=== PATIENT | male | born 1995 | race Caucasian/White ===

== ENCOUNTER 2017-05-27 15:28 | Emergency (ER) | payer BC, OTHER ==
[2017-05-27 15:38] VITALS: BP 126/76; PULSE 74; RESP 16; TEMP 99.5
--- NOTE | 2017-05-27 15:44 | ED ---
Lower Extremity Injury HPI - General Chief Complaint: Extremity Injury, Lower Stated Complaint: knee injury Time Seen by Provider: 05/27/17 15:38 Source: patient, RN notes reviewed Mode of arrival: wheelchair Limitations: no limitations - History of Present Illness Initial Comments: This a 21-year-old male presents emergency department to complaint left knee pain. 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 Patient states he felt 2 pops in his knees. Patient states ever since that he was barely able weight-bear. Patient has increased pain with extension of his left leg. He's had some injuries in the past but has never seen an orthopedic doctor. Patient denies any paresthesias no head injury no other muscle skeletal injury. - Related Data Previous Rx's Medication Instructions Recorded Acetaminophen-Codeine 300-30mg 1 tab PO Q4H PRN #20 tablet 05/27/17 [Tylenol #3] Allergies Allergy/AdvReac Type Severity Reaction Status Date / Time No Known Allergies Allergy Verified 05/27/17 15:35 Review of Systems ROS Statement: Those systems with pertinent positive or pertinent negative responses have been documented in the HPI. ROS Other: All systems not noted in ROS Statement are negative. Past Medical History Past Medical History: No Reported History History of Any Multi-Drug Resistant Organisms: None Reported Past Surgical History: Orthopedic Surgery Past Psychological History: ADD/ADHD, Anxiety Smoking Status: Current every day smoker Past Alcohol Use History: Rare Past Drug Use History: Marijuana General Exam Limitations: no limitations General appearance: alert, in no apparent distress Neck exam: Present: normal inspection, full ROM. Absent: tenderness, meningismus, lymphadenopathy Respiratory exam: Present: normal lung sounds bilaterally. Absent: respiratory distress, wheezes, rales, rhonchi, stridor Cardiovascular Exam: Present: regular rate, normal rhythm, normal heart sounds. Absent: systolic murmur, diastolic murmur, rubs, gallop, clicks Extremities exam: Present: other (Left knee there is mild medial tenderness along the joint line there is no obvious deformity, ecchymosis or swelling patient has pain with knee extension and flexion there is no laxity with valgus or varus negative anterior posterior drawer test) Neurological exam: Present: alert, oriented X3, CN II-XII intact. Absent: motor sensory deficit Course Vital Signs 05/27/17 15:35 Temperature 99.5 F Pulse Rate 74 Respiratory 16 Rate Blood Pressure 126/76 O2 Sat by Pulse 99 Oximetry Medical Decision Making - Medical Decision Making 21-year-old male presented for left knee injury. Patient has a left knee sprain with possibility of ligamentous tear. Patient will follow-up with on- call orthopedics return parameters discussed. Patient was placed in knee immobilizer. Disposition Clinical Impression: Left knee sprain Disposition: HOME SELF-CARE Condition: Stable Instructions: Knee Sprain (ED) Additional Instructions: Please return to the Emergency Department if symptoms worsen or any other concerns. Prescriptions: Acetaminophen-Codeine 300-30mg [Tylenol #3] 1 tab PO Q4H PRN #20 tablet PRN Reason: pain Referrals: Darius Peña DO [Primary Care Provider] - 1-2 days Mingo Dc MD [STAFF PHYSICIAN] - 1-2 days Time of Disposition: 16:08
--- NOTE | 2017-05-27 16:04 | XR ---
Left knee HISTORY: Pain 3 views of the left knee correlated to prior left knee dated 08/08/2011 There is no interval change. Bone mineralization, joint spaces and alignment are stable. There is sof t tissue swelling present. There may be a small joint effusion. 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 Correlate for [place] Schlatter disease. IMPRESSION: No acute fracture or dislocation is evident. Consider knee MRI as indicated. Soft tissue swelling noted anteriorly.
== END 2017-05-27 16:20 | disposition home or self-care (01) ==
LOC: EC 15:28
DX: S83.92XA Sprain of unspecified site of left knee, initial encounter (principal); X58.XXXA Exposure to other specified factors, initial encounter; Y93.51 Activity, roller skating (inline) and skateboarding; F17.200 Nicotine dependence, unspecified, uncomplicated
CPT/HCPCS: 73562; 99283; L1830

== ENCOUNTER 2019-09-29 07:55 | Emergency (ER) | payer OTHER ==
[2019-09-29 08:06] VITALS: RESP 18; TEMP 98
[2019-09-29] MEDS ORDERED: LIDOCAINE 1% INJ 10MG/ML (20 ML MDV) SQ ONE (08:18)
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
[2019-09-29 09:11] VITALS: BP 141/82; PULSE 80
== END 2019-09-29 09:07 | disposition home or self-care (01) ==
LOC: EC 07:55
DX: S01.81XA Laceration without foreign body of other part of head, initial encounter (principal); F17.200 Nicotine dependence, unspecified, uncomplicated; W22.8XXA Striking against or struck by other objects, initial encounter
CPT/HCPCS: 99283; 12013; J2001

== ENCOUNTER 2020-06-18 09:13 | Emergency (ER) | payer OTHER ==
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
[2020-06-18 13:07] LABS: Cocaine Screen,Urine Not Detected (NotDetected); Phencyclidine Screen,Urine Not Detected (NotDetected); Urn Cannabinoid Scrn Not Detected (NotDetected)
[2020-06-18 13:08] LABS: Amphetamine Screen,Urine Detected (NotDetected); Barbiturate Screen,Urine Not Detected (NotDetected); Benzodiazepines Screen,Urine Not Detected (NotDetected); Methadone Screen, Urine Not Detected (NotDetected); Opiate Screen,Urine Not Detected (NotDetected); Oxycodone Screen, Urine Not Detected (NotDetected); Tricyclic Antidepressant,Urine Not Detected (NotDetected)
[2020-06-18 21:19] LABS: ALT 16 U/L (4-49); AST 21 U/L (17-59); African American GFR (CKD) >90 (>60 ml/min/1.73 sqM); Albumin 5.1 g/dL (3.5-5.0); Alkaline Phosphatase 49 U/L (38-126); Anion Gap 11 mmol/L; Blood Urea Nitrogen 16 mg/dL (9-20); Calcium 10.3 mg/dL (8.4-10.2); Carbon Dioxide 22 mmol/L (22-30); Chloride 104 mmol/L (98-107); Glucose 92 mg/dL (74-99); Non-African American GFR(CKD) >90 (>60 ml/min/1.73 sqM); Potassium 4.2 mmol/L (3.5-5.1); Sodium 137 mmol/L (137-145); Total Bilirubin 1.3 mg/dL (0.2-1.3)
[2020-06-18 21:22] LABS: HCT 47.4 % (39.0-53.0); HGB 16.2 gm/dL (13.0-17.5); MCH 27.6 pg (25.0-35.0); MCHC 34.1 g/dL (31.0-37.0); MCV 81.1 fL (80.0-100.0); Mean Platelet Volume 7.6; Platelet Count 242 k/uL (150-450); RBC 5.85 m/uL (4.30-5.90); RDW 13.3 % (11.5-15.5); WBC 9.2 k/uL (3.8-10.6)
[2020-06-18 22:44] LABS: Appearance,Urine Clear (Clear); Bilirubin,Urine Negative (Negative); Blood,Urine Negative (Negative); Color,Urine Yellow; Glucose,Urine (UA) Negative (Negative); Ketones,Urine 2+ (Negative); Leukocyte Esterase,Urine Negative (Negative); Nitrite,Urine Negative (Negative); PH, Urine 5.5 (5.0-8.0); Protein,Urine Negative (Negative); Specific Gravity,Urine 1.029 (1.001-1.035); Urobilinogen,Urine <2.0 mg/dL (<2.0)
[2020-06-18] MEDS ORDERED: LORazepam 1 MG TAB PO STA (23:30)
[2020-06-19 06:18] VITALS: TEMP 98.3
[2020-06-19 08:02] VITALS: RESP 18
[2020-06-19 10:53] VITALS: BP 119/75; PULSE 99
== END 2020-06-19 10:39 | disposition home or self-care (01) ==
LOC: EC 09:13
DX: F32.9 Major depressive disorder, single episode, unspecified (principal); R44.3 Hallucinations, unspecified; F17.200 Nicotine dependence, unspecified, uncomplicated
CPT/HCPCS: 36415; 80053; 80306; 81003; 82075; 85027; 99285

== ENCOUNTER 2020-07-04 00:41 | Emergency (ER) | payer OTHER ==
--- NOTE | 2020-07-04 00:55 | ED ---
General Adult HPI - General Stated complaint: tachycardia Time Seen by Provider: 07/04/20 00:43 Source: patient, EMS Mode of arrival: EMS Limitations: no limitations - History of Present Illness Initial comments: Patient is 25-year-old man with history of substance abuse who is brought to have evaluation for palpitations. The patient does admit that he had recently abused Adderall. He is denying other medical complaints. No chest pain, dyspnea, nausea or vomiting, diaphoresis or other complaints -: hour(s) Location: chest Severity scale (1-10): 0 Consistency: constant Improves with: none Worsens with: none Associated Symptoms: denies other symptoms Treatments Prior to Arrival: none - Related Data Home Medications Medication Instructions Recorded Confirmed No Known Home Medications 06/18/20 06/18/20 Allergies Allergy/AdvReac Type Severity Reaction Status Date / Time No Known Allergies Allergy Verified 07/04/20 00:54 Review of Systems ROS Statement: Those systems with pertinent positive or pertinent negative responses have been documented in the HPI. ROS Other: All systems not noted in ROS Statement are negative. Constitutional: Denies: fever, chills Respiratory: Denies: cough, dyspnea Cardiovascular: Reports: as per HPI, palpitations. Denies: chest pain, dyspnea on exertion, edema Gastrointestinal: Denies: abdominal pain, vomiting, diarrhea Musculoskeletal: Denies: back pain Skin: Denies: rash Neurological: Denies: headache, weakness Past Medical History Past Medical History: No Reported History History of Any Multi-Drug Resistant Organisms: None Reported Past Surgical History: Orthopedic Surgery Past Psychological History: ADD/ADHD, Anxiety Smoking Status: Current every day smoker Past Alcohol Use History: Occasional Past Drug Use History: Methamphetamine General Exam Limitations: no limitations General appearance: alert, in no apparent distress Head exam: Present: atraumatic, normocephalic Eye exam: Present: normal appearance, PERRL, EOMI. Absent: scleral icterus, conjunctival injection ENT exam: Present: normal oropharynx Respiratory exam: Present: normal lung sounds bilaterally. Absent: respiratory distress, wheezes, rales, rhonchi, stridor Cardiovascular Exam: Present: normal rhythm, tachycardia, normal heart sounds. Absent: systolic murmur, diastolic murmur, rubs, gallop GI/Abdominal exam: Present: soft. Absent: distended, tenderness, guarding, rebound, rigid, mass Extremities exam: Present: normal inspection, normal capillary refill. Absent: pedal edema, calf tenderness Back exam: Present: normal inspection. Absent: CVA tenderness (R), CVA tende rness (L) Neurological exam: Present: alert Psychiatric exam: Present: normal affect. Absent: homicidal ideation, suicidal ideation Skin exam: Present: warm, dry, intact, normal color, other (Needle tracks left forearm). Absent: rash Course Vital Signs 07/04/20 07/04/20 07/04/20 00:42 01:46 02:00 Temperature 99.2 F Pulse Rate 138 H 120 H Pulse Rate [ 140 H Bilateral] Respiratory 18 Rate Blood Pressure 126/89 O2 Sat by Pulse 97 Oximetry 07/04/20 07/04/20 07/04/20 02:43 02:53 03:36 Temperature 98.0 F Pulse Rate 106 H 95 88 Pulse Rate [ Bilateral] Respiratory 16 Rate Blood Pressure 136/73 O2 Sat by Pulse 99 Oximetry Medical Decision Making - Lab Data Result diagrams: 07/04/20 01:00 07/04/20 01:00 Lab Results 07/04/20 07/04/20 07/04/20 Range/Units 01:00 01:00 01:00 WBC 14.8 H (3.8-10.6) k/uL RBC 5.12 (4.30-5.90) m/uL Hgb 14.1 (13.0-17.5) gm/dL Hct 40.9 (39.0-53.0) % MCV 79.9 L (80.0-100.0) fL MCH 27.5 (25.0-35.0) pg MCHC 34.4 (31.0-37.0) g/dL RDW 13.0 (11.5-15.5) % Plt Count 256 (150-450) k/uL Neutrophils % 85 % Lymphocytes % 7 % Monocytes % 5 % Eosinophils % 2 % Basophils % 0 % Neutrophils # 12.5 H (1.3-7.7) k/uL Lymphocytes # 1.0 (1.0-4.8) k/uL Monocytes # 0.7 (0-1.0) k/uL Eosinophils # 0.3 (0-0.7) k/uL Basophils # 0.1 (0-0.2) k/uL Sodium 140 (137-145) mmol/L Potassium 3.9 (3.5-5.1) mmol/L Chloride 108 H (98-107) mmol/L Carbon Dioxide 21 L (22-30) mmol/L Anion Gap 11 mmol/L BUN 20 (9-20) mg/dL Creatinine 0.89 (0.66-1.25) mg/dL Est GFR (CKD-EPI)AfAm >90 (>60 ml/min/1.73 sqM) Est GFR (CKD-EPI)NonAf >90 (>60 ml/min/1.73 sqM) Glucose 97 (74-99) mg/dL Calcium 9.7 (8.4-10.2) mg/dL Urine Opiates Screen Not Detected (NotDetected) Ur Oxycodone Screen Not Detected (NotDetected) Urine Methadone Screen Not Detected (NotDetected) Ur Propoxyphene Screen Not Detected (NotDetected) Ur Barbiturates Screen Not Detected (NotDetected) U Tricyclic Antidepress Not Detected (NotDetected) Ur Phencyclidine Scrn Not Detected (NotDetected) Ur Amphetamines Screen Detected H (NotDetected) U Methamphetamines Scrn Detected H (NotDetected) U Benzodiazepines Scrn Not Detected (NotDetected) Urine Cocaine Screen Not Detected (NotDetected) U Marijuana (THC) Screen Not Detected (NotDetected) Disposition Clinical Impression: Sinus tachycardia, Substance abuse Disposition: HOME SELF-CARE Condition: Good Instructions (If sedation given, give patient instructions): Heart Palpitations (ED) Is patient prescribed a controlled substance at d/c from ED?: No Referrals: Darius Peña DO [Primary Care Provider] - 1-2 days
[2020-07-04] MEDS ORDERED: LORazepam 2 MG/ML INJ IV STA (01:01)
[2020-07-04 01:33] LABS: Basophils # (A) 0.1 k/uL (0-0.2); Basophils % (A) 0 %; Eosinophils # (A) 0.3 k/uL (0-0.7); Eosinophils % (A) 2 %; HCT 40.9 % (39.0-53.0); HGB 14.1 gm/dL (13.0-17.5); Lymphocytes % (A) 7 %; MCH 27.5 pg (25.0-35.0); MCHC 34.4 g/dL (31.0-37.0); MCV 79.9 fL (80.0-100.0); Mean Platelet Volume 7.9; Monocytes # (A) 0.7 k/uL (0-1.0); Monocytes % (A) 5 %; Neutrophils # (A) 12.5 k/uL (1.3-7.7); Neutrophils % (A) 85 %; Platelet Count 256 k/uL (150-450); RBC 5.12 m/uL (4.30-5.90); WBC 14.8 k/uL (3.8-10.6)
[2020-07-04 01:53] LABS: African American GFR (CKD) >90 (>60 ml/min/1.73 sqM); Anion Gap 11 mmol/L; Blood Urea Nitrogen 20 mg/dL (9-20); Calcium 9.7 mg/dL (8.4-10.2); Carbon Dioxide 21 mmol/L (22-30); Chloride 108 mmol/L (98-107); Cocaine Screen,Urine Not Detected (NotDetected); Glucose 97 mg/dL (74-99); Non-African American GFR(CKD) >90 (>60 ml/min/1.73 sqM); Opiate Screen,Urine Not Detected (NotDetected); Phencyclidine Screen,Urine Not Detected (NotDetected); Potassium 3.9 mmol/L (3.5-5.1); Sodium 140 mmol/L (137-145); Urn Cannabinoid Scrn Not Detected (NotDetected)
[2020-07-04 01:54] LABS: Amphetamine Screen,Urine Detected (NotDetected); Barbiturate Screen,Urine Not Detected (NotDetected); Benzodiazepines Screen,Urine Not Detected (NotDetected); Methadone Screen, Urine Not Detected (NotDetected); Oxycodone Screen, Urine Not Detected (NotDetected); Tricyclic Antidepressant,Urine Not Detected (NotDetected)
[2020-07-04 03:38] VITALS: BP 136/73; PULSE 88; RESP 16; TEMP 98
== END 2020-07-04 03:39 | disposition home or self-care (01) ==
LOC: EC 00:41
DX: F19.10 Other psychoactive substance abuse, uncomplicated (principal); F17.200 Nicotine dependence, unspecified, uncomplicated
CPT/HCPCS: 36415; 93005; 80048; 85025; 80306; 99285; 96374; J2060

== ENCOUNTER 2021-03-22 02:36 | Emergency (ER) | payer OTHER ==
[2021-03-22 02:45] VITALS: TEMP 100.7
[2021-03-22] MEDS ORDERED: ACETAMINOPHEN TAB 500 MG TAB PO STA (03:08)
[2021-03-22] MEDS ORDERED: IBUPROFEN 800 MG TAB PO STA (03:08)
[2021-03-22] MEDS ORDERED: SULFAMETH-TMP DS STARTER PACK 2 TAB BTL PO STA (03:08)
[2021-03-22] MEDS ORDERED: IBUPROFEN 600 MG STARTER PACK 4 TAB BTL PO STA (03:08)
[2021-03-22] MEDS ORDERED: CEPHALEXIN 500 MG CAP PO STA (03:08)
[2021-03-22] MEDS ORDERED: SULFAMETHOX-TMP 800-160MG 1 EACH TAB PO STA (03:08)
[2021-03-22] MEDS ORDERED: CEPHALEXIN 500MG STARTER PACK 4 CAP BTL PO STA (03:08)
--- NOTE | 2021-03-22 03:10 | ED ---
Lower Extremity Injury HPI - General Chief Complaint: Extremity Injury, Lower Stated Complaint: Right foot pain Time Seen by Provider: 03/22/21 02:54 Source: patient, EMS, RN notes reviewed, old records reviewed Mode of arrival: EMS Limitations: no limitations - History of Present Illness Initial Comments: This is a 25-year-old male who does have a history of IV drug abuse coming with right lower extremity right foot swelling leg swelling. Patient is recent IV drug abuse, just 6 days ago. Patient has no shortness of breath but states he may have had a fever but he states he does get a fever occasionally when he takes methamphetamines. Patient has otherwise no significant illness no sick contacts no travel history. MD Complaint: other (Right foot pain and swelling) -: hour(s) Injury: Leg: Right, Ankle: Right, Foot: Right Place: home Severity: mild Severity scale (1-10): 2 Worsens With: weight bearing Context: other (IV drug abuse) Other Symptoms: other ( fever) Associated Symptoms: swelling, numbness - Related Data Previous Rx's Medication Instructions Recorded Cephalexin [Keflex] 500 mg PO Q6HR #40 cap 03/22/21 Sulfamethox-Tmp 800-160Mg [Bactrim 2 tab PO BID #40 tab 03/22/21 DS 800-160 mg] Allergies Allergy/AdvReac Type Severity Reaction Status Date / Time No Known Allergies Allergy Verified 07/04/20 00:54 Review of Systems ROS Statement: Those systems with pertinent positive or pertinent negative responses have been documented in the HPI. ROS Other: All systems not noted in ROS Statement are negative. Past Medical History Past Medical History: No Reported History History of Any Multi-Drug Resistant Organisms: None Reported Past Surgical History: Orthopedic Surgery Past Psychological History: ADD/ADHD, Anxiety Smoking Status: Current every day smoker, Vaper Past Alcohol Use History: Occasional Past Drug Use History: Methamphetamine General Exam - General Exam Comments Initial Comments: Right lower extremity swelling, edema with some erythema in the toes and feet Limitations: no limitations General appearance: alert, in no apparent distress Head exam: Present: atraumatic, normocephalic, normal inspection Eye exam: Present: normal appearance, PERRL, EOMI. Absent: scleral icterus, conjunctival injection, periorbital swelling ENT exam: Present: normal exam, mucous membranes moist Neck exam: Present: normal inspection. Absent: tenderness, meningismus, lymphadenopathy Respiratory exam: Present: normal lung sounds bilaterally. Absent: respiratory distress, wheezes, rales, rhonchi, stridor Cardiovascular Exam: Present: regular rate, normal rhythm, normal heart sounds. Absent: systolic murmur, diastolic murmur, rubs, gallop, clicks GI/Abdominal exam: Present: soft, normal bowel sounds. Absent: distended, tenderness, guarding, rebound, rigid Extremities exam: Present: normal inspection, full ROM, normal capillary refill. Absent: tenderness, pedal edema, joint swelling, calf tenderness Back exam: Present: normal inspection Neurological exam: Present: alert, oriented X3, CN II-XII intact Psychiatric exam: Present: normal affect, normal mood Skin exam: Present: warm, dry, intact, normal color. Absent: rash Course Vital Signs 03/22/21 03/22/21 02:43 03:39 Temperature 100.7 F H Pulse Rate 122 H 110 H Respiratory 20 18 Rate Blood Pressure 149/83 145/88 O2 Sat by Pulse 97 98 Oximetry - Reevaluation(s) Reevaluation #1: Medical record is reviewed Patient symptoms are significantly improved here in the ER Patient informed of results and questions are answered Patient feels good for discharge home Medical Decision Making - Medical Decision Making 25 male DF for evaluation patient Dese for evaluation of leg pain and swelling. Patient does have cellulitis likely from IV drug abuse, no evidence of bacteremia or murmur on his heart at this time. Patient does IV drug abuse. We'll treat cellulitis, patient can be discharged home to return if symptoms worsen area patient states that he has heavy symptoms before - Radiology Data Radiology results: report reviewed (X-ray right ankle and foot are negative for air), image reviewed Disposition Clinical Impression: Cellulitis of right leg Disposition: HOME SELF-CARE Condition: Good Instructions (If sedation given, give patient instructions): Cellulitis (ED) Prescriptions: Sulfamethox-Tmp 800-160Mg [Bactrim DS 800-160 mg] 2 tab PO BID #40 tab Cephalexin [Keflex] 500 mg PO Q6HR #40 cap Is patient prescribed a controlled substance at d/c from ED?: No Referrals: Aixa Parker MD [Primary Care Provider] - 1-2 days
--- NOTE | 2021-03-22 03:12 | XR ---
EXAM: XR Right Foot Complete, 3 or More Views CLINICAL HISTORY: ITS.REASON XR Reason: pain/swelling TECHNIQUE: Frontal, lateral and oblique views of the right foot. COMPARISON: No relevant prior studies available. FINDINGS: Bones/joints: Unremarkable. No acute fracture. No dislocation. Soft tissues: Unremarkable. No radiopaque foreign body. IMPRESSION: Unremarkable right foot x-rays.
--- NOTE | 2021-03-22 03:12 | XR ---
EXAM: XR Right Ankle Complete, 3 or More Views CLINICAL HISTORY: ITS.REASON XR Reason: pain/swelling TECHNIQUE: Frontal, lateral and oblique views of the right ankle. COMPARISON: No relevant prior studies available. FINDINGS: Bones/joints: No acute fracture or dislocation is seen. Soft tissues: Mild soft tissue swelling surrounding the ankle. IMPRESSION: 1. Mild soft tissue swelling surrounding the ankle. 2. No acute fracture or dislocation is seen.
[2021-03-22 03:41] VITALS: BP 145/88; PULSE 110; RESP 18
== END 2021-03-22 03:41 | disposition home or self-care (01) ==
LOC: EC 02:36
DX: L03.115 Cellulitis of right lower limb (principal); F17.200 Nicotine dependence, unspecified, uncomplicated
CPT/HCPCS: 99284

== ENCOUNTER 2021-03-23 05:21 | Observation (INO) | payer OTHER ==
--- NOTE | 2021-03-23 05:41 | ED ---
Recheck HPI - General Chief Complaint: Skin/Abscess/Foreign Body Stated Complaint: Leg pain - revisit Time Seen by Provider: 03/23/21 05:35 Source: patient, RN notes reviewed, old records reviewed Mode of arrival: wheelchair Limitations: no limitations - History of Present Illness Initial Comments: This is a 25-year-old male DF for evaluation patient Dese for evaluation of leg pain, patient was unable to prescribe her get prescribed antibiotics and states his pain is worsened swelling is worsened. Patient denying fevers. Denies active drug use. No significant medical history, patient is released from intermediate Complaint: wound re-check, medication refill request -: days(s) Returns Today for: needs IV antibiotics, persistent/worsening pain related to initial visit Symptoms Since Prior Visit: worsening pain, worsening swelling, worsening rednes s Context: planned re-check Associated Symptoms: none Treatments Prior to Arrival: Given Antibiotics on - Related Data Previous Rx's Medication Instructions Recorded Cephalexin [Keflex] 500 mg PO Q6HR #40 cap 03/22/21 Sulfamethox-Tmp 800-160Mg [Bactrim 2 tab PO BID #40 tab 03/22/21 DS 800-160 mg] Allergies Allergy/AdvReac Type Severity Reaction Status Date / Time latex AdvReac Unknown Verified 03/24/21 07:16 sulfamethoxazole AdvReac Nausea & Verified 03/24/21 07:16 [From Bactrim] Vomiting trimethoprim [From Bactrim] AdvReac Nausea & Verified 03/24/21 07:16 Vomiting Review of Systems ROS Statement: Those systems with pertinent positive or pertinent negative responses have been documented in the HPI. ROS Other: All systems not noted in ROS Statement are negative. Past Medical History Past Medical History: No Reported History Additional Past Medical History / Comment(s): drug abuse History of Any Multi-Drug Resistant Organisms: None Reported Past Surgical History: Orthopedic Surgery Past Psychological History: ADD/ADHD, Anxiety Smoking Status: Current every day smoker, Vaper Past Alcohol Use History: Occasional Past Drug Use History: Methamphetamine - Past Family History Father Family Medical History: No Reported History Mother Family Medical History: Unable to Obtain General Exam - General Exam Comments Initial Comments: Bilateral lower extremity edema and cellulitis Limitations: no limitations General appearance: alert, in no apparent distress Head exam: Present: atraumatic, normocephalic, normal inspection Eye exam: Present: normal appearance, PERRL, EOMI. Absent: scleral icterus, conjunctival injection, periorbital swelling ENT exam: Present: normal exam, mucous membranes moist Neck exam: Present: normal inspection. Absent: tenderness, meningismus, lymphadenopathy Respiratory exam: Present: normal lung sounds bilaterally. Absent: respiratory distress, wheezes, rales, rhonchi, stridor Cardiovascular Exam: Present: regular rate, normal rhythm, normal heart sounds. Absent: systolic murmur, diastolic murmur, rubs, gallop, clicks GI/Abdominal exam: Present: soft, normal bowel sounds. Absent: distended, tenderness, guarding, rebound, rigid Extremities exam: Present: normal inspection, full ROM, normal capillary refill. Absent: tenderness, pedal edema, joint swelling, calf tenderness Back exam: Present: normal inspection Neurological exam: Present: alert, oriented X3, CN II-XII intact Psychiatric exam: Present: normal affect, normal mood Skin exam: Present: warm, dry, intact, normal color. Absent: rash Course Vital Signs 03/23/21 03/23/21 05:28 07:00 Temperature 98.8 F 97.8 F Pulse Rate 116 H Pulse Rate [ 104 H Pulse Oximetery ] Respiratory 20 16 Rate Blood Pressure 143/80 Blood Pressure 147/89 [Left Arm] O2 Sat by Pulse 98 98 Oximetry - Reevaluation(s) Reevaluation #1: Medical record is reviewed Patient reevaluated in the emergency department, symptoms resolved Patient informed results questions answered Medical Decision Making - Medical Decision Making 25 male to be admitted for IV antibiotics secondary persistent lower extremity cellulitis and infection secondary to IV drug abuse - Lab Data Result diagrams: 03/23/21 06:11 03/23/21 06:11 - EKG Data -: EKG Interpreted by Me (EKG shows sinus rhythm of 97, ME 166 QRS 90 QTC 449) Disposition Clinical Impression: Cellulitis of right leg, Failure of outpatient treatment, Drug abuse Disposition: ADMITTED IP TO THIS HOSP Condition: Fair Is patient prescribed a controlled substance at d/c from ED?: No
[2021-03-23] MEDS ORDERED: MORPHINE SULFATE 4 MG/ML SYRINGE IV STA (05:53)
[2021-03-23] MEDS ORDERED: SODIUM CHLORIDE 0.9% 1,000 ML IV STA ×2 (05:53)
[2021-03-23] MEDS ORDERED: ONDANSETRON 4 MG/2 ML VIAL IVP STA (05:53)
[2021-03-23] MEDS ORDERED: NALOXONE 0.4 MG/ML 1 ML VIAL IV PRN (05:53)
[2021-03-23] MEDS ORDERED: MORPHINE SULFATE 4 MG/ML SYRINGE IV PRN (05:53)
[2021-03-23] MEDS ORDERED: SODIUM CHLORIDE 0.9% 1,000 ML IV SCH (06:00)
[2021-03-23] MEDS ORDERED: VANCOMYCIN IV PER PHARMACY 1 EACH MISC MISCELLANE PRN (06:23)
[2021-03-23 06:26] LABS: Basophils # (A) 0.1 k/uL (0-0.2); Basophils % (A) 1 %; Eosinophils # (A) 0.4 k/uL (0-0.7); Eosinophils % (A) 5 %; HCT 39.9 % (39.0-53.0); HGB 13.6 gm/dL (13.0-17.5); Lymphocytes # (A) 2.1 k/uL (1.0-4.8); Lymphocytes % (A) 29 %; MCHC 34.1 g/dL (31.0-37.0); MCV 79.3 fL (80.0-100.0); Mean Platelet Volume 8.2; Monocytes # (A) 0.6 k/uL (0-1.0); Monocytes % (A) 8 %; Neutrophils % (A) 55 %; Platelet Count 176 k/uL (150-450); RBC 5.03 m/uL (4.30-5.90); RDW 13.8 % (11.5-15.5); WBC 7.2 k/uL (3.8-10.6)
[2021-03-23 06:42] LABS: ALT 28 U/L (4-49); African American GFR (CKD) >90 (>60 ml/min/1.73 sqM); Albumin 4.5 g/dL (3.5-5.0); Anion Gap 15 mmol/L; Blood Urea Nitrogen 13 mg/dL (9-20); Calcium 9.4 mg/dL (8.4-10.2); Carbon Dioxide 17 mmol/L (22-30); Chloride 106 mmol/L (98-107); Creatine Kinase 703 U/L (55-170); Glucose 75 mg/dL (74-99); Non-African American GFR(CKD) >90 (>60 ml/min/1.73 sqM); Phosphorus 3.7 mg/dL (2.5-4.5); Sodium 138 mmol/L (137-145); Total Protein 7.6 g/dL (6.3-8.2)
[2021-03-23 06:54] LABS: AST 54 U/L (17-59); Alkaline Phosphatase 63 U/L (38-126); Magnesium 2.2 mg/dL (1.6-2.3)
[2021-03-23] MEDS ORDERED: VANCOMYCIN 1,750 MG in SODIUM CHLORIDE 0.9% 500 ML 500 ML IVPB ONE (07:00)
[2021-03-23 07:43] VITALS: BP 147/89; PULSE 104; RESP 16; TEMP 97.8
[2021-03-23 09:31] LABS: Appearance,Urine Clear (Clear); Bilirubin,Urine Negative (Negative); Blood,Urine Negative (Negative); Color,Urine Yellow; Glucose,Urine (UA) Negative (Negative); Ketones,Urine 3+ (Negative); Leukocyte Esterase,Urine Negative (Negative); Nitrite,Urine Negative (Negative); PH, Urine 6.5 (5.0-8.0); Protein,Urine Negative (Negative); Specific Gravity,Urine 1.016 (1.001-1.035); Urobilinogen,Urine <2.0 mg/dL (<2.0)
--- NOTE | 2021-03-23 12:53 | HP ---
HISTORY AND PHYSICAL DATE OF SERVICE: 03/23/2021. CHIEF COMPLAINT: Right leg pain and rash. HISTORY OF PRESENT ILLNESS: This 25-year-old gentleman with a past medical history of multiple medical problems including ADD, ADHD, anxiety, history of IV drug abuse with methamphetamine, presented with right leg pain as well as bilateral leg rash also. There is no history of fever, rigors. No history of headache, loss of consciousness, or seizures. On admission, the white count was found to be normal. PAST MEDICAL HISTORY: History of ADD ADHD, anxiety, history nicotine dependence, history of IV drug abuse, methamphetamine. MEDICATIONS: Medications are: 1. Bactrim DS 2 b.i.d. 2. Keflex 500 mg q.6 p.r.n. ALLERGIES: LATEX and BACTRIM. FAMILY HISTORY: No history of heart disease or strokes in the family. SOCIAL HISTORY: History of smoking. History of IV drug abuse as mentioned earlier. REVIEW OF SYSTEMS: ENT: No diminished hearing or diminished vision. CARDIOVASCULAR SYSTEM: No angina. RESPIRATORY SYSTEM: No cough. GI: No nausea. : No dysuria. NERVOUS SYSTEM: No numbness or weakness. ALLERGY/IMMUNOLOGY: No asthma or hayfever. MUSCULOSKELETAL: As mentioned earlier. HEMATOLOGY: No history of anemia. ENDOCRINE: No history of diabetes. CONSTITUTIONAL: As mentioned earlier. DERMATOLOGY: As mentioned earlier. RHEUMATOLOGY: Negative. PSYCHIATRY: As mentioned earlier. PHYSICAL EXAMINATION: The patient is alert and oriented x4. Pulse is 116, blood pressure 143/80, respirations 20, temperature 98.8, pulse ox 98% on room air. HEENT: Conjunctivae normal. NECK: No jugular venous distention. CARDIOVASCULAR: S1, S2 muffled. RESPIRATORY: Breath sounds diminished at the bases. Scattered rhonchi. ABDOMEN: Soft, nontender. No mass palpable. LEGS: Significant rash on bilateral legs and some pain also present. Pulses felt normally. NERVOUS SYSTEM: Higher function as mentioned earlier. Moves all 4 limbs. No focal motor or sensory deficits. LYMPHATICS: No lymphadenopathy of the neck, axillae or groin. SKIN: As mentioned earlier. JOINTS: No active deforming arthropathy. LABS: WBC 7.2, hemoglobin 13.6, creatine kinase 703. ASSESSMENT: 1. Bilateral leg lesions, rule out cellulitis. 2. Rule out infective endocarditis. 3. History of IV drug abuse. 4. Decreased CO2. 5. History of attention deficit disorder, attention deficit hyperactivity disorder. 6. History of anxiety. 7. History of nicotine dependence. 8. History of methamphetamine usage. RECOMMENDATIONS AND DISCUSSION: Recommend to continue current medication, continue symptomatic treatment. Otherwise, cultures, infectious disease evaluation, symptomatic treatment. Empiric antibiotics have been initiated. Prognosis guarded because of multiple complex medical issues. Cultures will be obtained. The patient will be also recommended to follow up with primary physician in the outpatient setting and also recommended outpatient substance abuse dependence and counseling also. Prognosis guarded. Further recommendations to follow. Discussed with patient and staff. MMODL / IJN: [id number] /
[2021-03-23] MEDS ORDERED: VANCOMYCIN 1,500 MG in SODIUM CHLORIDE 0.9% 250 ML IVPB SCH (15:00)
--- NOTE | 2021-03-23 15:21 | DS ---
DISCHARGE SUMMARY DATE OF SERVICE: 03/23/2021 FINAL DIAGNOSES: 1. Possible acute bilateral cellulitis. Rule out suspected infective endocarditis. 2. History of IV drug abuse. 3. Attention deficit disorder, attention deficit hyperactivity disorder. 4. Patient left the hospital AGAINST MEDICAL ADVICE. HISTORY OF PRESENT ILLNESS: This 25-year-old gentleman was admitted with multiple medical issues, as mentioned earlier. The patient was seen by Dr. Lara. The patient's general condition was guarded because of the above-mentioned complicated medical issues; however, the patient was not willing to stay and left the hospital AGAINST MEDICAL ADVICE after repeated explanation of the graveness of the patient's condition. Please refer to staff notes and consultations as well as History and Physical for further information. MMODL / IJN: [id number] /
[2021-03-23 16:33] LABS: Urine Alcohol Negative (Negative); Urine Barbiturate Negative (Negative); Urine Cocaine Negative (Negative); Urine Methadone Negative (Negative); Urine Opiates Positive (Negative); Urine Phencyclidine Negative (Negative)
== END 2021-03-23 10:56 | disposition left against medical advice (07) ==
LOC: EC 05:21 → 6NMEDSUR 05:53
PROVIDERS: ADMIT Hospitalist; ATTEND Hospitalist
DX: L03.115 Cellulitis of right lower limb (principal); F19.10 Other psychoactive substance abuse, uncomplicated; T80.29XA Infection following other infusion, transfusion and therapeutic injection, initial encounter; F98.8 Other specified behavioral and emotional disorders with onset usually occurring in childhood and adolescence; Z53.29 Procedure and treatment not carried out because of patient's decision for other reasons; F90.9 Attention-deficit hyperactivity disorder, unspecified type; F41.9 Anxiety disorder, unspecified; F17.200 Nicotine dependence, unspecified, uncomplicated; F17.290 Nicotine dependence, other tobacco product, uncomplicated; Z91.040 Latex allergy status; Z88.1 Allergy status to other antibiotic agents
CPT/HCPCS: 96376; 96368; 96365; 96366; 96375; 99285; 93005; 80053; 82550; 83605; 83735; 84100; 85025; 81003; 80306; 87070; 87205; 87075; G0378; J3370; J2270; J2405; J0696

== ENCOUNTER 2021-03-23 11:02 | Emergency (ER) | payer OTHER ==
[2021-03-23 11:10] VITALS: BP 149/91; PULSE 119; RESP 18; TEMP 98.2
[2021-03-23] MEDS ORDERED: BACITRACIN OINT 1 EACH PACKET TOPICAL ONE (11:43)
--- NOTE | 2021-03-23 11:49 | ED ---
General Adult HPI - General Chief complaint: Extremity Injury, Upper Stated complaint: revisit - finger lac Time Seen by Provider: 03/23/21 11:16 Source: patient Mode of arrival: ambulatory Limitations: no limitations - History of Present Illness Initial comments: 5-year-old male presents to emergency Department with a chief complaint of a laceration. Patient reports he lacerated his right fifth digit over 24 hours ago and went to another emergency department where he was discharged with Bactrim and Keflex. Patient reports he is yet to begin the Medication. Patient States before He Begins Taking the Medication, He Wants to Have the Laceration "looked at". Patient denies any discharge from the finger or surrounding erythema. Patient states he was admitted to the hospital but signed out AMA. Patient states he wants a "bandage" on his finger before he can black pickler his antibiotic. - Related Data Previous Rx's Medication Instructions Recorded Cephalexin [Keflex] 500 mg PO Q6HR #40 cap 03/22/21 Sulfamethox-Tmp 800-160Mg [Bactrim 2 tab PO BID #40 tab 03/22/21 DS 800-160 mg] Allergies Allergy/AdvReac Type Severity Reaction Status Date / Time latex AdvReac Unknown Verified 03/23/21 09:31 sulfamethoxazole AdvReac Nausea & Verified 03/23/21 06:52 [From Bactrim] Vomiting trimethoprim [From Bactrim] AdvReac Nausea & Verified 03/23/21 06:52 Vomiting Review of Systems ROS Statement: Those systems with pertinent positive or pertinent negative responses have been documented in the HPI. ROS Other: All systems not noted in ROS Statement are negative. Past Medical History Past Medical History: No Reported History Additional Past Medical History / Comment(s): IV drug abuse - Methamphetamine History of Any Multi-Drug Resistant Organisms: None Reported Past Surgical History: Orthopedic Surgery Additional Past Surgical History / Comment(s): Collar bone surgery, knee surgery Past Anesthesia/Blood Transfusion Reactions: No Reported Reaction Past Psychological History: ADD/ADHD, Anxiety Smoking Status: Current some day smoker, Light tobacco smoker Past Alcohol Use History: None Reported Past Drug Use History: None Reported, Methamphetamine - Past Family History Father Family Medical History: No Reported History Mother Family Medical History: Unable to Obtain General Exam Limitations: no limitations General appearance: alert, in no apparent distress Head exam: Present: atraumatic, normocephalic, normal inspection Eye exam: Present: normal appearance, PERRL, EOMI Pupils: Present: normal accommodation ENT exam: Present: normal exam, normal oropharynx, mucous membranes moist Neck exam: Present: normal inspection, full ROM. Absent: tenderness, lymphadenopathy Respiratory exam: Present: normal lung sounds bilaterally. Absent: respiratory distress Cardiovascular Exam: Present: regular rate, normal rhythm, normal heart sounds Extremities exam: Present: full ROM, tenderness (Minimal tenderness to touch), normal capillary refill, other (Palpable ulnar and radial pulses laterally.). Absent: normal inspection (healing laceration noted on the right fifth digit. No signs of surrounding erythema or discharge. Slight swelling in the region. He has full range of motion of finger), pedal edema, joint swelling, calf tenderness Back exam: Present: normal inspection, full ROM. Absent: tenderness Neurological exam: Present: alert, oriented X3 Psychiatric exam: Present: normal affect, normal mood Skin exam: Present: warm, dry, intact, normal color Course Vital Signs 03/23/21 11:07 Temperature 98.2 F Pulse Rate 119 H Respiratory 18 Rate Blood Pressure 149/91 O2 Sat by Pulse 95 Oximetry Medical Decision Making - Medical Decision Making 25-year-old male presents to emergency department with a chief complaint of a la ceration. Physical examination, no signs of an acute infection at this time. Bacitracin and dressing applied. Advised him to take his rectum and Keflex. Return parameters discussed the patient was upsetting agreeable. Case discussed with Dr. Scruggs. Disposition Clinical Impression: Laceration re-check Disposition: HOME SELF-CARE Condition: Stable Instructions (If sedation given, give patient instructions): Laceration (DC) Additional Instructions: Starts Taking your antibiotics. Return to emergency department if symptoms worsen. Is patient prescribed a controlled substance at d/c from ED?: No Referrals: Aixa Parker MD [Primary Care Provider] - 1-2 days Time of Disposition: 11:49
== END 2021-03-23 11:57 | disposition home or self-care (01) ==
LOC: EC 11:02
DX: S61.216A Laceration without foreign body of right little finger without damage to nail, initial encounter (principal); F17.200 Nicotine dependence, unspecified, uncomplicated; X58.XXXA Exposure to other specified factors, initial encounter
CPT/HCPCS: 99282

== ENCOUNTER 2021-03-23 23:44 | Observation (INO) | payer OTHER ==
--- NOTE | 2021-03-23 23:58 | ED ---
Psych HPI - General Chief Complaint: Psychiatric Symptoms Stated Complaint: Mental Health Time Seen by Provider: 03/23/21 23:55 Source: patient, RN notes reviewed, old records reviewed Mode of arrival: ambulatory - History of Present Illness Initial Comments: This is a 25-year-old male DF for evaluation patient is well-known to our emergency department the last few days. [facility] was [facility] may have done recurrent drugs, has been diagnosed with cellulitis on antibiotics. Patient is having acute psychotic episodes patient feels persecuted pressure feels like everyone is out to get him. Patient presents DF for evaluation of acute psychosis, severe history of meth abuse MD Complaint: altered mental status, other (Psychosis) -: days(s) Associated Psychiatric Symptoms: racing thoughts, delusions Quality: constant Improves With: none Worsens With: drug use Context: recent drug abuse, significant life stressor Associated Symptoms: denies other symptoms Treatments Prior to Arrival: placed on mental health hold - Related Data Previous Rx's Medication Instructions Recorded Cephalexin [Keflex] 500 mg PO Q6HR #40 cap 03/22/21 Sulfamethox-Tmp 800-160Mg [Bactrim 2 tab PO BID #40 tab 03/22/21 DS 800-160 mg] Allergies Allergy/AdvReac Type Severity Reaction Status Date / Time latex AdvReac Unknown Verified 03/24/21 07:16 sulfamethoxazole AdvReac Nausea & Verified 03/24/21 07:16 [From Bactrim] Vomiting trimethoprim [From Bactrim] AdvReac Nausea & Verified 03/24/21 07:16 Vomiting Review of Systems ROS Statement: Those systems with pertinent positive or pertinent negative responses have been documented in the HPI. ROS Other: All systems not noted in ROS Statement are negative. Past Medical History Past Medical History: No Reported History Additional Past Medical History / Comment(s): IV drug abuse - Methamphetamine History of Any Multi-Drug Resistant Organisms: None Reported Past Surgical History: Orthopedic Surgery Additional Past Surgical History / Comment(s): Collar bone surgery, knee surgery Past Anesthesia/Blood Transfusion Reactions: No Reported Reaction Past Psychological History: ADD/ADHD, Anxiety Smoking Status: Current some day smoker, Light tobacco smoker Past Alcohol Use History: None Reported Past Drug Use History: Methamphetamine - Past Family History Father Family Medical History: No Reported History Mother Family Medical History: Unable to Obtain General Exam Limitations: no limitations General appearance: alert, in no apparent distress, anxious Head exam: Present: atraumatic, normocephalic, normal inspection Eye exam: Present: normal appearance, PERRL, EOMI. Absent: scleral icterus, conjunctival injection, periorbital swelling ENT exam: Present: normal exam, mucous membranes moist Neck exam: Present: normal inspection. Absent: tenderness, meningismus, lymphadenopathy Respiratory exam: Present: normal lung sounds bilaterally. Absent: respiratory distress, wheezes, rales, rhonchi, stridor Cardiovascular Exam: Present: regular rate, normal rhythm, normal heart sounds. Absent: systolic murmur, diastolic murmur, rubs, gallop, clicks GI/Abdominal exam: Present: soft, normal bowel sounds. Absent: distended, tende rness, guarding, rebound, rigid Extremities exam: Present: normal inspection, full ROM, normal capillary refill. Absent: tenderness, pedal edema, joint swelling, calf tenderness Back exam: Present: normal inspection Neurological exam: Present: alert, oriented X3, CN II-XII intact Psychiatric exam: Present: normal affect, normal mood Skin exam: Present: warm, dry, intact, normal color. Absent: rash Course Vital Signs 03/23/21 03/24/21 03/24/21 23:47 04:00 07:27 Temperature 97.8 F 98.2 F Pulse Rate 101 H 87 94 Respiratory 18 22 18 Rate Blood Pressure 130/81 139/84 135/77 O2 Sat by Pulse 97 98 97 Oximetry 03/24/21 03/24/21 11:00 14:56 Temperature 97.7 F 98.0 F Pulse Rate 101 H 94 Respiratory 18 18 Rate Blood Pressure 119/79 126/68 O2 Sat by Pulse 98 99 Oximetry - Reevaluation(s) Reevaluation #1: 03/24/21 02:21 Medical record is reviewed Medical Decision Making - Medical Decision Making 25 male will be admitted for psychiatric evaluation and concurrently treatment of medical cellulitis secondary to IV drug abuse - Lab Data Result diagrams: 03/25/21 06:18 03/25/21 06:18 Lab Results 03/24/21 03/24/21 Range/Units 03:07 03:12 Urine Color Yellow Urine Appearance Clear (Clear) Urine pH 6.5 (5.0-8.0) Ur Specific [place] 1.024 (1.001-1.035) Urine Protein Negative (Negative) Urine Glucose (UA) Negative (Negative) Urine Ketones 1+ H (Negative) Urine Blood Negative (Negative) Urine Nitrite Negative (Negative) Urine Bilirubin Negative (Negative) Urine Urobilinogen <2.0 (<2.0) mg/dL Ur Leukocyte Esterase Negative (Negative) Urine Opiates Screen Detected H (NotDetected) Ur Oxycodone Screen Not Detected (NotDetected) Urine Methadone Screen Not Detected (NotDetected) Ur Propoxyphene Screen Not Detected (NotDetected) Ur Barbiturates Screen Not Detected (NotDetected) U Tricyclic Antidepress Not Detected (NotDetected) Ur Phencyclidine Scrn Not Detected (NotDetected) Ur Amphetamines Screen Detected H (NotDetected) U Methamphetamines Scrn Detected H (NotDetected) U Benzodiazepines Scrn Not Detected (NotDetected) Urine Cocaine Screen Not Detected (NotDetected) U Marijuana (THC) Screen Not Detected (NotDetected) Disposition Clinical Impression: Cellulitis of right leg, Psychosis Disposition: ADMITTED IP TO THIS HOSP Condition: Fair Is patient prescribed a controlled substance at d/c from ED?: No
[2021-03-24] MEDS ORDERED: ONDANSETRON 4 MG/2 ML VIAL IVP PRN (03:35)
[2021-03-24] MEDS ORDERED: SODIUM CHLORIDE 0.9% 1,000 ML IV STA (03:35)
[2021-03-24] MEDS ORDERED: NALOXONE 0.4 MG/ML 1 ML VIAL IV PRN (03:35)
[2021-03-24] MEDS ORDERED: LORazepam 2 MG/ML INJ IV STA (03:37)
[2021-03-24 04:10] LABS: Appearance,Urine Clear (Clear); Bilirubin,Urine Negative (Negative); Blood,Urine Negative (Negative); Color,Urine Yellow; Glucose,Urine (UA) Negative (Negative); Ketones,Urine 1+ (Negative); Leukocyte Esterase,Urine Negative (Negative); Nitrite,Urine Negative (Negative); PH, Urine 6.5 (5.0-8.0); Protein,Urine Negative (Negative); Specific Gravity,Urine 1.024 (1.001-1.035); Urobilinogen,Urine <2.0 mg/dL (<2.0)
[2021-03-24 04:29] LABS: ALT 25 U/L (4-49); AST 37 U/L (17-59); African American GFR (CKD) >90 (>60 ml/min/1.73 sqM); Albumin 3.8 g/dL (3.5-5.0); Alkaline Phosphatase 60 U/L (38-126); Anion Gap 10 mmol/L; Blood Urea Nitrogen 12 mg/dL (9-20); Calcium 9.1 mg/dL (8.4-10.2); Carbon Dioxide 21 mmol/L (22-30); Chloride 107 mmol/L (98-107); Glucose 93 mg/dL (74-99); Magnesium 2.2 mg/dL (1.6-2.3); Non-African American GFR(CKD) >90 (>60 ml/min/1.73 sqM); Phosphorus 3.7 mg/dL (2.5-4.5); Potassium 3.7 mmol/L (3.5-5.1); Sodium 138 mmol/L (137-145); Total Bilirubin 0.3 mg/dL (0.2-1.3); Total Protein 6.5 g/dL (6.3-8.2)
[2021-03-24 04:39] LABS: Basophils % (A) 1 %; Eosinophils # (A) 0.4 k/uL (0-0.7); Eosinophils % (A) 7 %; HCT 37.5 % (39.0-53.0); HGB 13.4 gm/dL (13.0-17.5); Lymphocytes # (A) 2.2 k/uL (1.0-4.8); Lymphocytes % (A) 37 %; MCH 28.4 pg (25.0-35.0); MCHC 35.7 g/dL (31.0-37.0); MCV 79.4 fL (80.0-100.0); Mean Platelet Volume 7.8; Monocytes # (A) 0.4 k/uL (0-1.0); Monocytes % (A) 7 %; Neutrophils # (A) 2.9 k/uL (1.3-7.7); Neutrophils % (A) 47 %; Platelet Count 235 k/uL (150-450); RBC 4.72 m/uL (4.30-5.90); RDW 13.3 % (11.5-15.5)
[2021-03-24 05:06] LABS: Amphetamine Screen,Urine Detected (NotDetected); Barbiturate Screen,Urine Not Detected (NotDetected); Benzodiazepines Screen,Urine Not Detected (NotDetected); Cocaine Screen,Urine Not Detected (NotDetected); Methadone Screen, Urine Not Detected (NotDetected); Opiate Screen,Urine Detected (NotDetected); Oxycodone Screen, Urine Not Detected (NotDetected); Phencyclidine Screen,Urine Not Detected (NotDetected); Tricyclic Antidepressant,Urine Not Detected (NotDetected); Urn Cannabinoid Scrn Not Detected (NotDetected)
[2021-03-24] MEDS: HYDROcodone/APAP 5-325MG 1 EACH TAB PO PRN ×2 (12:31→23:43)
[2021-03-24] MEDS: LORazepam 2 MG/ML INJ IV PRN ×2 (12:33→23:14)
--- NOTE | 2021-03-24 14:14 | P.CN ---
Psychiatric Consult - . Consult date: 03/24/21 Consult:: IDENTIFYING DATA: This patient is a single, unemployed, 25-year-old male with a significant history of methamphetamine abuse who presented to the hospital with a chief complaint of altered mental status. HISTORY OF PRESENT ILLNESS: The patient presented to the hospital on 03/22/2021 and has been frequently in and out of the hospital and returning to the emergency department for treatment of cellulitis, finger laceration, and other various reasons. Psychiatry has been consulted for evaluation of altered mental status. At this time, the patient is not reporting any significant symptoms of psychiatric pathology. He is not reporting any suicidal or homicidal ideation, intention, and/or plan. He is denying any significant symptoms of depression or bipolar disorder. He reports no increased goal-directed activity, excessive energy, grandiosity, or impulsivity. The patient is not reporting any psychotic symptoms. He reports no auditory or visualizations. He is denying any paranoia or other delusions at this time. Patient states that he was likely under the influence of drugs prior to this admission causing him to feel like he was paranoid. He is vehemently denying any sort of symptoms at this time aside from fatigue. The patient states that he last used IV methamphetamines 3 days prior to this admission. The patient is not reporting any other illicit drug use and denies any tobacco or alcohol use. PAST PSYCHIATRIC HISTORY: Patient has reported history of anxiety and ADHD. He denies any previous inpatient psychiatric admissions. He reports no outpatient services. He reports no prior trials of psychiatric medications. He denies any history of suicide attempts. PAST MEDICAL HISTORY: Past Medical History: No Reported History History of Any Multi-Drug Resistant Organisms: None Reported Past Surgical History: Orthopedic Surgery Past Psychological History: ADD/ADHD, Anxiety Smoking Status: Current every day smoker, Vaper Past Alcohol Use History: Occasional Past Drug Use History: Methamphetamine ALLERGIES: Latex, trimethoprim, sulfamethoxazole CHEMICAL DEPENDENCY HISTORY: Patient was his drug of choice is IV meth amphetamines. He states that he uses this daily with his last use 3 days prior to this admission. The patient visits daily. He denies any alcohol, marijuana, or other drug use. Despite this, the patient has tested positive for opiates on his urinary drug screen on 03/23/2021. FAMILY PSYCHIATRIC/SUBSTANCE USE HISTORY: Patient denies SOCIAL HISTORY: Patient was born in [place], and raised in [place], [place]. He is single, unemployed, and has no children. MENTAL STATUS EXAM: General Appearance: Patient appears to be stated age is alert, pleasant, and cooperative. Patient appears to have fair hygiene and grooming wearing hospital gown with poor eye contact. Behavior: Patient is calmly lying in bed without any agitated behavior. Patient appears somewhat somnolent during the interview but is cooperative and polite. Speech: Patient's speech is fluent and nonpressured. Mood/Affect: Patient reports their mood is "just tired", affect is congruent and somnolent. Suicidality/Homicidality: Patient vehemently denies any suicidal or homicidal ideation, intention, and/or plan. Perceptions: Patient denies any visual hallucinations and denies any auditory hallucinations Though content/process: There is no evidence of any delusional thought content and thought process is linear and goal-directed. Memory and concentration: AOX3, grossly intact for the purposes of this session. Can spell "WORLD" backwards Judgment and insight: poor Vital Signs Temp 97.7 F 03/24/21 11:00 Pulse 101 H 03/24/21 11:00 Resp 18 03/24/21 11:00 BP 119/79 03/24/21 11:00 Pulse Ox 98 03/24/21 11:00 Intake & Output 03/23/21 03/24/21 03/24/21 18:59 06:59 18:59 Weight 95.254 kg IMPRESSIONS: Methamphetamine-induced psychosis, resolving Methamphetamine abuse Nicotine dependence Cellulitis PLAN: -At this time patient DOES NOT meet criteria for inpatient psychiatric admission. The patient is currently not reporting any significant psychiatric pathology. Patient is not actively psychotic and has no criteria for an inpatient psychiatric admission. He is likely that his psychosis was secondary to his methamphetamine abuse. -Patient was counseled at length on abstaining from all substances including methamphetamines. The patient states that he is contemplative at this time. -Would recommend the following medication changes/additions: No medication recommendations at this time. -Recommend referral for inpatient or outpatient substance abuse rehabilitation. -Psychiatry will sign off at this point, please contact with any questions. 03/24/21 14:05
--- NOTE | 2021-03-24 14:49 | HP ---
HISTORY AND PHYSICAL DATE OF SERVICE: 03/24/2021 CHIEF COMPLAINTS: Psychiatric symptoms. HISTORY OF PRESENT ILLNESS: This 25-year-old gentleman with a past medical history of multiple medical problems including ADD ADHD, anxiety, history of nicotine dependence, history of IV drug abuse, methamphetamine, was recently admitted with bilateral rashes. The patient is being worked up for infective endocarditis, but however the patient left the hospital against medical advice. The patient apparently went home and the patient had possibly recurrent drug abuse. The patient had acute psychotic episodes and patient feels persecuted pressures like everyone is out to get him and the patient was taken to [facility] and admitted for evaluation and treatment. There is no history of fever, rigors, chills. No headache or loss of consciousness. Rash in the legs is persisting at this time. PAST MEDICAL HISTORY: ADD, ADHD, anxiety, nicotine dependence, drug abuse. MEDICATIONS ARE: Bactrim DS b.i.d., Keflex. ALLERGIES: LATEX AND BACTRIM. FAMILY HISTORY: No history of heart disease or strokes in the family. SOCIAL HISTORY: History of smoking. History of IV methamphetamine abuse apparently. REVIEW OF SYSTEMS: ENT: No diminished vision or hearing. CARDIOVASCULAR: No angina or palpitations. RESPIRATORY: No cough or hemoptysis. GI: No nausea or vomiting. : No dysuria. NERVOUS SYSTEM: No numbness or weakness. ALLERGY/IMMUNOLOGY: No asthma or hayfever. MUSCULOSKELETAL: As mentioned earlier. HEMATOLOGY: No history of anemia. ENDOCRINE: No history of diabetes or hypothyroidism. CONSTITUTIONAL: As mentioned earlier. DERMATOLOGY: As mentioned earlier. RHEUMATOLOGY: Negative. PSYCHIATRY: As mentioned earlier. PHYSICAL EXAMINATION: GENERAL: Patient is alert and oriented times three. VITAL SIGNS: Pulse 101, blood pressure 119/70, respirations 18, temperature 97.7, pulse ox 98% on room air. HEENT: Conjunctivae normal. Oral mucosa moist. NECK: No jugular venous distention. No carotid bruits. No lymph node enlargement. RESPIRATORY: Breath sounds diminished at the bases. No rhonchi, no crackles. HEART: S1 and S2, muffled. ABDOMEN: Soft, no tenderness. No masses palpable. EXTREMITIES: No edema, no swelling. NERVOUS: Higher functions as mentioned earlier. Moves all four limbs. No focal motor or sensory deficits. LYMPHATICS: No lymph nodes palpable in the neck or axillae. SKIN: No rashes. JOINTS: No active deforming arthropathy. LABS: WBC 6, hemoglobin is 13.4, sodium 138, potassium 3.7. ASSESSMENT: 1. Acute psychosis for evaluation. 2. Bilateral foot rash, rule out infective endocarditis and cellulitis. 3. History of IV drug abuse. 4. History of ADD, ADHD. 5. History of anxiety. 6. History of nicotine dependence. 7. History of IV substance abuse. 8. History of ETOH. 9. FULL CODE. RECOMMENDATIONS AND DISCUSSION: In this 25-year-old gentleman who presented with multiple complex medical issues, we will monitor the patient closely. Continue the current medications, continue symptomatic treatment. CIWA protocol. I would also recommend psychiatric consultation. Infectious disease evaluation. Basic lab work. Prognosis guarded because of multiple complex medical issues and further recommendations to follow. I would also recommend the patient follow up with primary physician in the outpatient setting also. VICTORINA / JOSEPHINE: [id number] /
[2021-03-24] MEDS: NICOTINE 14MG/24HR PATCH TRANSDERM SCH (14:56)
--- NOTE | 2021-03-24 23:29 | CONS ---
CONSULTATION DATE OF SERVICE: 03/24/2021 REASON FOR CONSULTATION: Bilateral foot cellulitis. HISTORY OF PRESENT ILLNESS: The patient is a 25-year-old male with a past medical history significant for ADHD. The patient was admitted to the hospital yesterday for evaluation of bilateral foot cellulitis, more marked on his right foot, with some superficial ulceration to the right foot area. The patient was evaluated and was treated with antibiotic therapy. The patient left AMA and apparently he was given a prescription for Keflex and Bactrim DS. The patient took a dose and then presented back to the [facility] ER with mental status changes and also has been complaining of pain to bilateral foot area, more on the right side, described to be more of a dull ache to sharp, 5 to 6 out of 10, no radiation, and difficulty walking on it. The patient on presentation to the hospital was afebrile. The patient had a normal white count. Urine was positive for opiates, amphetamines and methamphetamines. The patient has been admitted to the hospital. Infectious Disease was consulted for further management of antibiotic therapy. The patient overall is not a very good historian. Most of the information has been obtained from review of the chart. REVIEW OF SYSTEMS: Positive points have been mentioned in the HPI. Rest of the systems are negative. PAST MEDICAL HISTORY: ADHD and drug use. PAST SURGICAL HISTORY: Collar bone surgery and knee surgery. SOCIAL HISTORY: Current everyday smoker. methamphetamine abuse. FAMILY HISTORY: No pertinent findings noted. ALLERGIES: SULFA and LATEX. MEDICATIONS: The patient is currently on Zofran, nicotine patch, Narcan, Ativan, Stanley. PHYSICAL EXAMINATION: Blood pressure is 126/68 with a pulse of 94, temperature 98. He is 99% on room air. General description is a middle-aged male lying in bed in no distress. HEENT: Examination shows no pallor or scleral icterus. Oral mucous membrane is dry. NECK: Trachea is central. No thyromegaly. LUNGS: Unlabored breathing. Clear to auscultation anteriorly. No wheeze or crackle. HEART: S1, S2. Regular rate and rhythm. No added sound. ABDOMEN: Soft. No tenderness. No guarding or rigidity. EXTREMITIES: Examination of the foot areas revealed some swelling and redness to the right foot; however, it has slightly decreased in intensity compared to yesterday. Superficial wound is drying out and no purulent drainage. Neurologically the patient is sleepy and lethargic, though oriented x3. Mood and affect normal. LABS: Hemoglobin is 13.4, white count 6.0, BUN of 12, creatinine 0.73. CRP is 2.7. DIAGNOSTIC IMPRESSION AND PLAN: Patient with bilateral foot cellulitis, superficial ulceration on the right, in this patient who signed out AMA yesterday and presented back to the hospital with similar symptoms and mental status changes. The patient did have cellulitis to the feet, mostly the right foot, but no evidence of any deep infection. PLAN: 1. Will start the patient on cefazolin 2 grams q.8 hours. 2. Will follow his clinical condition and further adjust medication if needed. Thank you for this consultation. Will follow this patient along with you. VICTORINA / CAROLN: [id number] /
[2021-03-25 07:08] LABS: Basophils % (A) 1 %; Eosinophils # (A) 0.3 k/uL (0-0.7); Eosinophils % (A) 6 %; HCT 37.7 % (39.0-53.0); HGB 13.3 gm/dL (13.0-17.5); Lymphocytes # (A) 2.4 k/uL (1.0-4.8); Lymphocytes % (A) 43 %; MCH 28.5 pg (25.0-35.0); MCHC 35.2 g/dL (31.0-37.0); MCV 80.7 fL (80.0-100.0); Mean Platelet Volume 7.6; Monocytes # (A) 0.3 k/uL (0-1.0); Monocytes % (A) 5 %; Neutrophils # (A) 2.4 k/uL (1.3-7.7); Neutrophils % (A) 43 %; Platelet Count 255 k/uL (150-450); RBC 4.67 m/uL (4.30-5.90); RDW 13.4 % (11.5-15.5); WBC 5.5 k/uL (3.8-10.6)
[2021-03-25 07:26] LABS: Potassium 4.2 mmol/L (3.5-5.1)
[2021-03-25 07:27] LABS: ALT 21 U/L (4-49); AST 25 U/L (17-59); African American GFR (CKD) >90 (>60 ml/min/1.73 sqM); Albumin 3.6 g/dL (3.5-5.0); Albumin/Globulin Ratio 1.3; Alkaline Phosphatase 53 U/L (38-126); Anion Gap 6 mmol/L; Blood Urea Nitrogen 12 mg/dL (9-20); Calcium 8.9 mg/dL (8.4-10.2); Carbon Dioxide 24 mmol/L (22-30); Chloride 110 mmol/L (98-107); Globulin 2.8 g/dL; Glucose 98 mg/dL (74-99); Magnesium 2.2 mg/dL (1.6-2.3); Non-African American GFR(CKD) >90 (>60 ml/min/1.73 sqM); Phosphorus 3.8 mg/dL (2.5-4.5); Sodium 140 mmol/L (137-145); Total Bilirubin 0.2 mg/dL (0.2-1.3); Total Protein 6.4 g/dL (6.3-8.2)
[2021-03-25] MEDS: NICOTINE 14MG/24HR PATCH TRANSDERM SCH (08:28)
[2021-03-25] MEDS: HYDROcodone/APAP 5-325MG 1 EACH TAB PO PRN ×3 (09:32→21:24)
--- NOTE | 2021-03-25 12:00 | ECHOF ---
Referral Reason:infection MEASUREMENTS -------- HEIGHT: 182.9 cm WEIGHT: 95.3 kg BP: 119/79 RVIDd: 3.5 cm (< 3.3) IVSd: 0.9 cm (0.6 - 1.1) LVIDd: 5.1 cm (3.9 - 5.3) LVPWd: 0.9 cm (0.6 - 1.1) IVSs: 1.4 cm LVIDs: 3.4 cm LVPWs: 1.6 cm LA Diam: 3.3 cm (2.7 - 3.8) LAESV Index (A-L): 26.90 ml/m Ao Diam: 3.1 cm (2.0 - 3.7) AV Cusp: 2.3 cm (1.5 - 2.6) MV EXCURSION: 27.332 mm (> 18.000) MV EF SLOPE: 207 mm/s (70 - 150) EPSS: 0.8 cm MV E Rigo: 1.17 m/s MV DecT: 206 ms MV A Rigo: 0.67 m/s MV E/A Ratio: 1.75 RAP: 5.00 mmHg RVSP: 23.73 mmHg FINDINGS -------- Sinus rhythm. This was a technically good study. The left ventricular size is normal. Left ventricular wall thickness is normal. Overall left vent ricular systolic function is normal with, an EF between 60 - 65 %. The right ventricle is mildly enlarged. Normal LA size by volume 22+/-6 ml/m2. The right atrium is normal in size. Interatrial and interventricular septum intact. The aortic valve is trileaflet and appears structurally normal. The mitral valve is normal. Mild tricuspid regurgitation present. Right ventricular systolic pressure is normal at < 35 mmHg. Trace/mild (physiologic) pulmonic regurgitation. The aortic root size is normal. Normal inferior vena cava with normal inspiratory collapse consistent with estimated right atrial pre ssure of 5 mmHg. There is no pericardial effusion. CONCLUSIONS -------- 1. The left ventricular size is normal. 2. Left ventricular wall thickness is normal. 3. Overall left ventricular systolic function is normal with, an EF between 60 - 65 %. 4. The right ventricle is mildly enlarged. 5. Normal LA size by volume 22+/-6 ml/m2. 6. The aortic valve is trileaflet and appears structurally normal. 7. Mild tricuspid regurgitation present. 8. Trace/mild (physiologic) pulmonic regurgitation. 9. There is no pericardial effusion. TOOL GRINDING MACHINE OPERATOR: Patty Diaz RDCS
--- NOTE | 2021-03-25 12:44 | PN ---
PROGRESS NOTE DATE OF SERVICE: 03/25/2021 REASON FOR FOLLOWUP: Bilateral feet cellulitis, right greater than the left. INTERVAL HISTORY: The patient is currently afebrile. The patient is more awake and alert. He is breathing comfortably. No chest pain, shortness of breath, cough, abdominal pain. Overall pain and discomfort to the foot has decreased intensity. PHYSICAL EXAMINATION: Blood pressure is 98/66, pulse of 79, temperature 98. He is 97% on room air. General description is a middle-aged male up in the room in no distress. Respiratory system: Unlabored breathing, clear to auscultation anteriorly. Heart S1, S2. Regular rate and rhythm. ABDOMEN: Soft. No tenderness. Bilateral feet swelling has slightly decreased. LABS: Hemoglobin is 13.1, white count of 5.5, BUN of 12, creatinine 0.73. DIAGNOSTIC IMPRESSION AND PLAN: Patient with bilateral foot cellulitis, right greater than left with spur formation on the right foot ankle area. The patient responded to cefazolin to continue finish therapy with oral Keflex. Local care with Aquacel Silver dressing and monitor clinical course closely. MMODL / IJN: [id number] /
--- NOTE | 2021-03-25 19:52 | PN ---
PROGRESS NOTE DATE OF SERVICE: 03/25/2021 This 25-year-old gentleman who was admitted with acute psychosis also had bilateral feet rash and possible cellulitis. The patient is on IV antibiotics. The patient had a 2D echo with Doppler done recently. The patient also has a history of IV drug abuse. The 2D echo showed ejection fraction about 60% to 65%, mild tricuspid regurgitation. No pericardial effusion was noted. No chest pain. No palpitations. No fever. PHYSICAL EXAMINATION: Alert and oriented x3. Pulse 79, blood pressure 98/66, respirations 16, temperature 98 degrees, pulse ox 97% on room air. HEENT: Conjunctivae normal. NECK: No jugular venous distention. CARDIOVASCULAR SYSTEM: S1, S2 muffled. RESPIRATORY SYSTEM: Breath sounds diminished at the bases. No rhonchi. No crackles. ABDOMEN: Soft, non-tender. No mass palpable. LEGS: No edema. No swelling. NERVOUS SYSTEM: No focal deficit. LABS: CBC within normal limits. Sodium 140, potassium 4.2. C-reactive protein is 2.7. ASSESSMENT: 1. Acute psychosis for evaluation. 2. Bilateral foot rash, possibly acute cellulitis. 3. No evidence of infective endocarditis. 4. History of IV drug abuse. 5. History of attention deficit disorder, attention deficit hyperactivity disorder. 6. History of anxiety. 7. History of nicotine dependence. 8. History of IV drug abuse. 9. History of ETOH. 10.FULL CODE. RECOMMENDATIONS AND DISCUSSION: I recommend to continue current medications, continue with the monitoring, symptomatic treatment. I recommend continued IV antibiotics. Once the patient is stabilized, we will transfer the patient to [facility]. As mentioned earlier, cultures are negative so far. Further recommendations to follow. MMODL / IJN: [id number] /
[2021-03-25] MEDS: LORazepam 2 MG/ML INJ IV PRN (21:24)
[2021-03-26 07:31] VITALS: BP 107/62; PULSE 73; RESP 17; TEMP 98
[2021-03-26] MEDS: HYDROcodone/APAP 5-325MG 1 EACH TAB PO PRN (07:34)
[2021-03-26] MEDS: NICOTINE 14MG/24HR PATCH TRANSDERM SCH (07:36)
--- NOTE | 2021-03-26 12:28 | PN ---
PROGRESS NOTE DATE OF SERVICE: 03/26/2021 REASON FOR FOLLOWUP: Bilateral lower extremity/foot cellulitis, right greater than left. INTERVAL HISTORY: Patient is currently afebrile, has been breathing comfortably. Still complaining of pain to bilateral feet area. However, the swelling and redness has seemed to almost resolve. No chest pain or cough. No abdominal pain. No diarrhea. PHYSICAL EXAMINATION: VITAL SIGNS: Blood pressure is 107/62 with a pulse of 73, temperature 98, he is 96% on room air. GENERAL DESCRIPTION: A middle-aged male lying in bed in no distress. RESPIRATORY SYSTEM: Unlabored breathing, clear to auscultation anteriorly. HEART: S1, S2. Regular rate and rhythm. ABDOMEN: Soft, no tenderness. EXTREMITIES: Bilateral foot swelling and redness has decreased. No drainage. LABS: Hemoglobin 13.1, white count of 5.5, BUN of 12, creatinine 0.73. DIAGNOSTIC IMPRESSION AND PLAN: Patient with bilateral foot cellulitis, right greater the left, with a superficial solution to the right posterior heel area. On Cefazolin with improvement. Finish therapy with oral Keflex and close outpatient followup. MMODL / IJN: [id number] /
--- NOTE | 2021-03-26 16:10 | P.DS ---
Providers Date of admission: 03/24/21 03:37 Expected date of discharge: 03/26/21 Attending physician: Lan Bardales Consults: 03/24/21 03:37 Consult Physician Routine Consulting Provider: Ramirez Graham Consult Reason/Comments: psychosis Do you want consulting provider notified?: Already Contacted 03/24/21 12:24 Consult Physician Routine Consulting Provider: Keon Lara Consult Reason/Comments: Infection in feet Do you want consulting provider notified?: Yes Primary care physician: Keith Kruse Hospital Course: Final diagnosis Acute psychosis for evaluation Bilateral foot rash, possibly acute cellulitis No evidence of infective endocarditis History of IV drug abuse History of attention deficit disorder, attention deficit hyperactivity disorder History of anxiety History of nicotine dependence History of EtOH Full code Discharge disposition Patient is being discharged in a stable condition with guarded prognosis to home. Patient will follow-up with Dr. Parker upon discharge. Patient will continue with a short course of oral antibiotics in the form of Keflex 500 mg 3 times daily for the next 5 days to complete the course. Patient also follow-up with community mental health and primary care provider to discuss possible rehab. Total time taken is greater than 35 minutes. Hospital course This is a 25-year-old male who was recently admitted with acute psychosis also had bilateral feet rash and possible cellulitis and was being closely monitored. Patient was started on IV antibiotics and infectious disease following the patient. Patient responded to IV cefazolin and will continue with oral Keflex 500 mg 3 times daily for the next 5 days to complete the course. Patient also to continue with local wound care. Patient was seen and evaluated by psychiatry as well recommending outpatient follow-up and to discuss possible rehab for drug abuse. Currently no reports of chest pain, shortness of breath, or palpitations. Patient is afebrile. No reports of nausea or vomiting and patient is tolerating diet. Patient will be discharged home today. Guarded prognosis. On exam vital signs are stable. Cardio S1, S2 are muffled. Respiratory shows diminished breath sounds at the bases with no wheezing or rhonchi noted. Abdomen is soft and nontender. Nervous system shows no focal deficits. Please refer to medication reconciliation sheet for a list of medications. Patient Condition at Discharge: Fair Plan - Discharge Summary Discharge Rx Participant: No New Discharge Prescriptions: New HYDROcodone/APAP 5-325MG [[place] 5-325] 1 each PO Q6HR PRN #12 tab PRN Reason: Pain Changed Cephalexin [Keflex] 500 mg PO TID 5 Days #15 cap Discontinued Sulfamethox-Tmp 800-160Mg [Bactrim DS 800-160 mg] 2 tab PO BID #40 tab Discharge Medication List Cephalexin [Keflex] 500 mg PO TID 5 Days #15 cap 03/26/21 [Rx] HYDROcodone/APAP 5-325MG [[place] 5-325] 1 each PO Q6HR PRN #12 tab 03/26/21 [Rx] Follow up Appointment(s)/Referral(s): Aixa Parker MD [Primary Care Provider] - 1-2 days Patient Instructions/Handouts: Cephalexin (By mouth), Hydrocodone/Acetaminophen (By mouth), Cellulitis (DC), Abuse of Alcohol (DC), Methamphetamine Abuse (DC), Psychotic Disorder (DC) Activity/Diet/Wound Care/Special Instructions: Activity Limited until follow-up Follow-up with primary care provider upon discharge Continue with antibiotics until finished Discharge Disposition: HOME SELF-CARE
== END 2021-03-26 13:27 | disposition home or self-care (01) ==
LOC: EC 23:44 → 6NMEDSUR 03-24 03:37 → 4SSUR 03-24 18:14
PROVIDERS: ADMIT Hospitalist; ATTEND Hospitalist
DX: F23 Brief psychotic disorder (principal); F15.10 Other stimulant abuse, uncomplicated; L03.115 Cellulitis of right lower limb; L03.116 Cellulitis of left lower limb; L97.519 Non-pressure chronic ulcer of other part of right foot with unspecified severity; F41.9 Anxiety disorder, unspecified; F90.9 Attention-deficit hyperactivity disorder, unspecified type; F17.200 Nicotine dependence, unspecified, uncomplicated; Z91.040 Latex allergy status; Z88.2 Allergy status to sulfonamides; Z88.1 Allergy status to other antibiotic agents; Z20.822 Contact with and (suspected) exposure to COVID-19
CPT/HCPCS: 96376 ×3; 96366 ×3; 82075; 96361; 96365; 96375; 99285; 93306; 80053 ×2; 85652; 83735 ×2; 84100 ×2; 85025 ×2; 86140; 81003; 87040; 80306; 87635; G0378 ×3; J2060 ×2; J0690 ×3; J2405

== ENCOUNTER 2021-04-05 08:01 | Inpatient (IN) | payer MEDICAID, OTHER ==
--- NOTE | 2021-04-05 08:45 | ED ---
General Adult HPI - General Chief complaint: Psychiatric Symptoms Stated complaint: Mental Health Time Seen by Provider: 04/05/21 08:05 Source: patient, RN notes reviewed, old records reviewed Mode of arrival: ambulatory Limitations: no limitations - History of Present Illness Initial comments: This is a 25-year-old male who presents emergency Department who comes emergency Department stating that he suicidal. Patient states it is constant putting jumping in front of a car. Patient states his family has abandoned him and he states he has a methamphetamine addiction and he's been trying to get rehabilitation but he can't get any help. Patient states she's been living on the streets since March 16. Patient denies any physical complaints today. Patient denies any headache patient denies any chest pain difficulty breathing shortness breath per patient denies any fever chills or cough. Patient denies any abdominal pain patient denies nausea vomiting diarrhea. Patient states he was once admitted for suicidal ideations in the past. Patient states she's made no attempt however to harm himself but he has thoughts of harming himself. - Related Data Home Medications Medication Instructions Recorded Confirmed HYDROcodone/APAP 5-325MG [[place] 1 tab PO Q6HR PRN 04/05/21 04/05/21 5-325] Previous Rx's Medication Instructions Recorded Cephalexin [Keflex] 500 mg PO TID 5 Days #15 cap 03/26/21 Allergies Allergy/AdvReac Type Severity Reaction Status Date / Time latex AdvReac Unknown Verified 04/05/21 10:57 sulfamethoxazole AdvReac Nausea & Verified 04/05/21 10:57 [From Bactrim] Vomiting trimethoprim [From Bactrim] AdvReac Nausea & Verified 04/05/21 10:57 Vomiting Review of Systems ROS Statement: Those systems with pertinent positive or pertinent negative responses have been documented in the HPI. ROS Other: All systems not noted in ROS Statement are negative. Past Medical History Past Medical History: No Reported History Additional Past Medical History / Comment(s): IV drug abuse - Methamphetamine History of Any Multi-Drug Resistant Organisms: None Reported Past Surgical History: Orthopedic Surgery Additional Past Surgical History / Comment(s): Collar bone surgery, knee surgery Past Anesthesia/Blood Transfusion Reactions: No Reported Reaction Past Psychological History: ADD/ADHD, Anxiety Smoking Status: Current some day smoker, Light tobacco smoker Past Alcohol Use History: None Reported - Past Family History Father Family Medical History: No Reported History Additional Family Medical History / Comment(s): Father is healthy Mother History Unknown: Yes Family Medical History: Unable to Obtain General Exam - General Exam Comments Initial Comments: GENERAL: Patient is well-developed and well-nourished. Patient is nontoxic and well- hydrated and is in no acute distress. ENT: Neck is soft and supple. No significant lymphadenopathy is noted. Oropharynx is clear. Moist mucous membranes. Neck has full range of motion without eliciting any pain. EYES: The sclera were anicteric and conjunctiva were pink and moist. Extraocular movements were intact and pupils were equal round and reactive to light. Eyelids were unremarkable. PULMONARY: Unlabored respirations. Good breath sounds bilaterally. No audible rales rhonchi or wheezing was noted. CARDIOVASCULAR: There is a regular rate and rhythm without any murmurs gallops or rubs. ABDOMEN: Soft and nontender with normal bowel sounds. SKIN: Skin is clear with no lesions or rashes and otherwise unremarkable. NEUROLOGIC: Patient is alert and oriented x3. Cranial nerves II through XII are grossly intact. Motor and sensory are also intact. Normal speech, volume and content. Symmetrical smile. MUSCULOSKELETAL: Normal extremities with adequate strength and full range of motion. No lower extremity swelling or edema. No calf tenderness. LYMPHATICS: No significant lymphadenopathy is noted PSYCHIATRIC: Patient states he is suicidal. Limitations: no limitations Course Vital Signs 04/05/21 08:03 Temperature 98.0 F Pulse Rate 89 Respiratory 18 Rate Blood Pressure 133/75 O2 Sat by Pulse 99 Oximetry Medical Decision Making - Lab Data Lab Results 04/05/21 Range/Units 09:32 Urine Opiates Screen Not Detected (NotDetected) Ur Oxycodone Screen Not Detected (NotDetected) Urine Methadone Screen Not Detected (NotDetected) Ur Propoxyphene Screen Not Detected (NotDetected) Ur Barbiturates Screen Not Detected (NotDetected) U Tricyclic Antidepress Not Detected (NotDetected) Ur Phencyclidine Scrn Not Detected (NotDetected) Ur Amphetamines Screen Not Detected (NotDetected) U Methamphetamines Scrn Not Detected (NotDetected) U Benzodiazepines Scrn Not Detected (NotDetected) Urine Cocaine Screen Not Detected (NotDetected) U Marijuana (THC) Screen Not Detected (NotDetected) Disposition Clinical Impression: Methamphetamine abuse, Suicidal ideation Disposition: ADMITTED IP TO THIS HOSP Referrals: None,Stated [Primary Care Provider] - 1-2 days Time of Disposition: 11:21
[2021-04-05 09:56] LABS: Amphetamine Screen,Urine Not Detected (NotDetected); Barbiturate Screen,Urine Not Detected (NotDetected); Benzodiazepines Screen,Urine Not Detected (NotDetected); Cocaine Screen,Urine Not Detected (NotDetected); Methadone Screen, Urine Not Detected (NotDetected); Opiate Screen,Urine Not Detected (NotDetected); Oxycodone Screen, Urine Not Detected (NotDetected); Phencyclidine Screen,Urine Not Detected (NotDetected); Tricyclic Antidepressant,Urine Not Detected (NotDetected); Urn Cannabinoid Scrn Not Detected (NotDetected)
[2021-04-05] MEDS ORDERED: MAGNESIUM HYDROXIDE 2,400 MG/10 ML CUP PO PRN (12:45)
[2021-04-05] MEDS ORDERED: ACETAMINOPHEN TAB 325 MG TAB PO PRN (12:45)
[2021-04-05] MEDS ORDERED: MAG HYDROX/AL HYDROX/SIMETH 30 ML CUP PO PRN (12:45)
[2021-04-05] MEDS ORDERED: LORazepam 1 MG TAB PO PRN (12:45)
[2021-04-05] MEDS ORDERED: LORazepam 2 MG/ML INJ IM PRN (12:49)
[2021-04-05] MEDS ORDERED: HALOPERIDOL LACTATE 5 MG/ML 1 ML VIAL IM PRN (12:51)
[2021-04-05 13:08] VITALS: RESP 16
[2021-04-05 16:53] LABS: Appearance,Urine Clear (Clear); Bilirubin,Urine Negative (Negative); Blood,Urine Negative (Negative); Color,Urine Yellow; Glucose,Urine (UA) Negative (Negative); Ketones,Urine Negative (Negative); Leukocyte Esterase,Urine Negative (Negative); Nitrite,Urine Negative (Negative); PH, Urine 6.5 (5.0-8.0); Protein,Urine Negative (Negative); Specific Gravity,Urine 1.019 (1.001-1.035); Urobilinogen,Urine <2.0 mg/dL (<2.0)
--- NOTE | 2021-04-05 18:29 | HP ---
DATE OF SERVICE: 04/05/2021 HISTORY AND PHYSICAL IDENTIFYING DATA: The patient is a 25-year-old male. He says recently he has been living on the streets. He presented to the ED for evaluation. CHIEF COMPLAINT: The patient has long-term substance use issues with methamphetamines. In addition, he has had depression and suicide thoughts including thoughts of jumping in front of a car. HISTORY OF PRESENTING ILLNESS: The patient notes that he has had methamphetamine dependence over the last 7 years. He said that has been the main focus pretty much in his entire life. He notes that he had one psychiatric admission 1 year ago. At that time, his parents brought him to [facility] stating that he was suicidal, though their main concern was trying to get him into substance abuse treatment. He was there for 7 days. He said that he did not meet criteria to be admitted to the substance abuse unit. He says that he has been using methamphetamines consistently for 7 years, starting around age 17 or 18. It is noted that he spent 1 year in half-way between the ages of 18 and 19 when he was involved in a drug house. He has had a few other limited periods of no more than 90 days when he was free of drug use. It is noted that recently he was just in shelter for 90 days for probation violation relating to failure to drug test and follow through with his RSAT program through [facility]. He was released from shelter March 16. He pretty much immediately got back into using meth. He notes that currently when he uses meth, he does not get the same effect that he used to get in the past. He notes that he gets paranoid thinking and has had pervasive thoughts of late that people are following him and plotting against him, talking about him behind his back. He said lately he seems to meet criteria for "methamphetamine burnout." He is wanting to get into a treatment program and states that he is motivated to stay completely free of methamphetamine and other abusive substances. He notes that he started using marijuana at age 16. He said some of that related to a lot of family turmoil that he experienced in his growing up. There was stealing of one family member from another and a lot of difficult interactions with the family. In fact he says that his mother currently is in half-way the best he knows and presumably has been sentenced to 10 years for larceny. The patient notes that other than meth, he does not use other abusive substances. He says that he no longer feels any high or other benefits from marijuana, alcohol or any other drugs. He notes that currently he is on probation until September of 2022. He has been sleeping poorly. His last use of drugs was about 3 days ago. It is noted that he had been prescribed 12 tablets of hydrocodone for foot cellulitis with the last dose that he took 3 days ago. His last use of meth was 4 days ago. He has not had any problems with hallucinations. He does say that he gets clear paranoid delusions. He does not identify significant past trauma or post-traumatic issues. He does not clearly identify significant anxiety or panic symptoms. He notes that his biggest issue currently is trying to stay away from other people who do drugs. One of the reasons that he is on the street is that he is aware he could go to drug houses, though that would just put him into more difficulties. It is noted that he has somewhat of a sunburn on his arms because he pretty much has been on the street. He says that his father is supportive, though his father has set limits that the family will no longer support him until he gets fully engaged in substance abuse treatment. He did identify a program he could be admitted to as of noon on Tuesday, though at this point he has not been able to find transportation. The patient currently is not on any psychotropic medications. He said one medicine he has been prescribed in the past is Zyprexa though he gets significance sedation. He notes that Remeron has been the most helpful for him in terms of helping him sleep as well as seeming to calm some of his feelings relating to withdrawal. SUBSTANCE USE HISTORY: As above. PAST MEDICAL HISTORY: Patient reports no chronic or current general health complaints. FAMILY AND SOCIAL HISTORY: He has a younger brother who he would like to be in more regular touch with. He would also like to be in touch with his father whom he identifies as supportive, though discouraged about his drug use. As noted his mother is in half-way. The patient is a high school graduate and did some college at [employer]. He does have some interest in academic pursuits. MENTAL STATUS EXAM: Patient was quite restless. He gave good eye contact. He answered questions appropriately. His thoughts were clear, coherent and goal-directed. He was spontaneous and interactive. His affect was somewhat intense. He smiled and had a friendly manner throughout the interview. He was somewhat over energized. His mood was somewhat elevated. He did express distress about his current situation and need for treatment. He notes having paranoid delusions. He does not voice any thoughts of harm. Cognition was clear. ASSESSMENT: The patient is diagnosed with methamphetamine dependence and acute methamphetamine withdrawal. He also has paranoid delusions, which does appear to be least to some extent drug-induced, though may not be simply a drug-related situation. Patient does indicate clear motivation to seek treatment. Strengths include wrangell intelligence and motivation for substance abuse treatment. Weakness includes long-term use of methamphetamines. DIAGNOSES: 1. Psychosis, not otherwise specified. 2. Methamphetamine dependence and acute withdrawal. RECOMMENDATIONS: Patient will be admitted for comprehensive medical, psychiatric and psychosocial evaluation. We will engage the patient in individual and group therapeutic activities. I will start the patient on Remeron 30 mg a day. I had an extensive discussion with the patient regarding withdrawal issues. We also talked about treatment options for his methamphetamine dependence. The patient will be working with Social Work and making contact tomorrow in hopes of finding a program he can be admitted to as soon as possible. VICTORINA / JOSEPHINE: [phone] / SERVANDO
[2021-04-05] MEDS ORDERED: MIRTAZAPINE 15 MG TAB PO SCH (21:00)
--- NOTE | 2021-04-06 01:04 | P.CONS ---
History of Present Illness - Reason for Consult Consult date: 04/06/21 - History of Present Illness The patient is a 25-year-old male with a PMH of methamphetamine abuse who presented to the emergency room depression and anxiety. The patient reported that he had been homeless and had been struggling with his methamphetamine abuse and had thoughts of hurting himself. The patient was subsequently admitted to the mental health unit where he was seen and evaluated. He reported feeling somewhat better that he was now in a stable environment. Reported that his last use of methamphetamine IV was 3 days ago. He denied any additional complaints. He denied chest discomfort, shortness of breath, fever, chills, cough, nausea, vomiting, abdominal pain, diarrhea. Review of Systems Pertinent positives and negatives as discussed in HPI, a complete review of systems was performed and all other systems are negative. Past Medical History Past Medical History: No Reported History Additional Past Medical History / Comment(s): IV drug abuse - Methamphetamine History of Any Multi-Drug Resistant Organisms: None Reported Past Surgical History: Orthopedic Surgery Additional Past Surgical History / Comment(s): Collar bone surgery, knee surgery Past Anesthesia/Blood Transfusion Reactions: No Reported Reaction Past Psychological History: ADD/ADHD, Anxiety Smoking Status: Current some day smoker, Light tobacco smoker Past Alcohol Use History: None Reported - Past Family History Father Family Medical History: No Reported History Additional Family Medical History / Comment(s): Father is healthy Mother History Unknown: Yes Family Medical History: Unable to Obtain Medications and Allergies Home Medications Medication Instructions Recorded Confirmed Type Cephalexin [Keflex] 500 mg PO TID 5 Days #15 cap 03/26/21 04/05/21 Rx HYDROcodone/APAP 5-325MG [[place] 1 tab PO Q6HR PRN 04/05/21 04/05/21 History 5-325] Allergies Allergy/AdvReac Type Severity Reaction Status Date / Time latex AdvReac Unknown Verified 04/05/21 10:57 sulfamethoxazole AdvReac Nausea & Verified 04/05/21 10:57 [From Bactrim] Vomiting trimethoprim [From Bactrim] AdvReac Nausea & Verified 04/05/21 10:57 Vomiting Physical Exam Vitals: Vital Signs Temp Pulse Pulse Resp BP BP Pulse Ox 04/05/21 13:07 98.3 F 90 16 127/67 97 04/05/21 08:03 98.0 F 89 18 133/75 99 Intake and Output 04/05/21 04/05/21 04/05/21 06:59 14:59 22:59 Other: Weight 97.522 kg General: non toxic, no distress, appears at stated age, normal weight Derm: no unusual rashes/lesions no unusual ecchymoses, warm, dry Head: atraumatic, normocephalic, symmetric Eyes: EOMI, no lid lag, anicteric sclera, pupils equal round reactive to light ENT: Nose and ears atraumatic, no thrush, no pharyngeal erythema Neck: No thyromegaly, no cervical lymphadenopathy, trachea midline, supple Mouth: no lip lesion, mucus membranes moist Cardiovascular: S1S2 reg, no murmur, positive posterior tibial pulse bilateral, no edema, capillary refill less than 2 seconds Lungs: CTA bilateral, no rhonchi, no rales , no accessory muscle use Abdominal: soft, nontender to palpation, no guarding, no appreciable organomegaly, normal bowel sounds Ext: no gross muscle atrophy, muscle strength 5 out of 5 in all 4 extremities grossly, no contractures, Neuro: CN II-XI grossly intact, light touch intact all 4 extremities, finger to nose within normal limits, Psych: Alert, oriented, appropriate affect Assessment and Plan Plan: Methamphetamine abuse -Advised on importance of cessation Depression and suicidal ideation -As per psychiatry Thank you for allowing us to participate in the care of this patient. We will follow peripherally. Do not hesitate to contact us with questions. Someone can be reached from the [facility] hospitalist group at all hours of the day at [phone].
[2021-04-06 06:55] VITALS: BP 116/58; PULSE 67
[2021-04-06 07:37] LABS: Basophils % (A) 1 %; Eosinophils # (A) 0.2 k/uL (0-0.7); Eosinophils % (A) 4 %; HCT 38.7 % (39.0-53.0); HGB 13.5 gm/dL (13.0-17.5); Lymphocytes # (A) 1.8 k/uL (1.0-4.8); Lymphocytes % (A) 38 %; MCH 28.4 pg (25.0-35.0); MCHC 34.9 g/dL (31.0-37.0); MCV 81.3 fL (80.0-100.0); Monocytes # (A) 0.2 k/uL (0-1.0); Monocytes % (A) 4 %; Neutrophils # (A) 2.5 k/uL (1.3-7.7); Neutrophils % (A) 52 %; Platelet Count 257 k/uL (150-450); RBC 4.76 m/uL (4.30-5.90); RDW 13.5 % (11.5-15.5); WBC 4.7 k/uL (3.8-10.6)
[2021-04-06 07:46] LABS: ALT 14 U/L (4-49); AST 21 U/L (17-59); African American GFR (CKD) >90 (>60 ml/min/1.73 sqM); Albumin 3.9 g/dL (3.5-5.0); Alkaline Phosphatase 50 U/L (38-126); Anion Gap 5 mmol/L; Blood Urea Nitrogen 11 mg/dL (9-20); Carbon Dioxide 26 mmol/L (22-30); Chloride 109 mmol/L (98-107); Glucose 92 mg/dL (74-99); Non-African American GFR(CKD) >90 (>60 ml/min/1.73 sqM); Potassium 4.7 mmol/L (3.5-5.1); Sodium 140 mmol/L (137-145); Total Bilirubin 0.1 mg/dL (0.2-1.3); Total Protein 6.3 g/dL (6.3-8.2)
[2021-04-06] MEDS: NICOTINE 14MG/24HR PATCH TRANSDERM SCH (08:47)
[2021-04-06 11:16] LABS: Chol/HDL Ratio 4.25; Cholesterol 119 mg/dL (0-200); LDL Cholesterol,Calculated 67.8 mg/dL (0.0-131.0)
[2021-04-06 12:09] LABS: Hemoglobin A1C 4.7 % (4.0-6.0)
--- NOTE | 2021-04-06 12:36 | P.PN ---
Progress Note - Text Progress Note Date: 04/06/21 Interval History: Patient was seen lying in his bed today and was directable and agreeable to sp kar with specifications writer in the office. Patient appears to have poor hygiene and grooming. He was fairly constricted in his affect. He states that he has been feeling depressed and feeling abandoned by his family. He states that he has been trying to get into rehab however has failed. He claims that he has been abusing methamphetamine. He states that when he uses lot of methamphetamine he becomes psychotic and starts hearing voices and becomes paranoid. He states that this time he is not paranoid or hearing voices however does feel depressed and "very anxious". He states that last night he was not able to sleep well with the Remeron and requested to have his medication changed. He was agreeable to take trazodone and Zoloft today. Themes of a poor appetite. He has not been going to groups. At this time patient denies any suicidal or homical ideations, intent or plan. Patient denies any auditory, visual hallucinations and denies any paranoia or delusions. Patient denies any side effects from the medications and has been compliant with meds. Mental Status Exam: General Appearance: Patient appears to be tall, stated age is alert, directable, and attempts to be cooperative. Poor hygiene and grooming Behavior: Patient is calmly seated without any agitated behavior. Speech: Patient's speech is fluent and nonpressured. Mood/Affect: Mood is depressed and anxious, affect is congruent and constricted. Suicidality/Homicidality: Patient denies having any suicidal or homicidal ideation intent or plan. Perceptions: Patient denies any visual hallucinations and denies any auditory hallucinations Though content/process: Guarded, evasive. Poor insight. Logical Memory and concentration: AOX3, grossly intact for the purposes of this session Judgment and insight: Poor, Improving mildly Assessment Major depressive disorder without psychotic features Methamphetamine abuse Nicotine dependence Plan: -Patient continues to meet criteria for inpatient psychiatric admission for symptom stabilization and safety. Patient has signed adult voluntary form and medication consent and was placed in patient's chart. -Medications: Added Zoloft 50 mg daily for mood/anxiety. Added trazodone 50 mg daily at bedtime for mood/insomnia. Vistaril when necessary for anxiety. -When necessary Ativan and Haldol for agitation/aggression. -NRT - nicotine patch -SW on board for discharge planning. Encouraged the patient to participate in milieu. Patient is currently homeless and will either be going to the senior care or rehab upon discharge.
[2021-04-06] MEDS: SERTRALINE 50 MG TAB PO SCH (12:48)
[2021-04-06 16:32] VITALS: TEMP 98.4
[2021-04-06] MEDS: traZODone HCL 50 MG TAB PO SCH (20:46)
[2021-04-06] MEDS: hydrOXYzine pamoate 25 MG CAP PO PRN (22:00)
[2021-04-07] MEDS: NICOTINE 14MG/24HR PATCH TRANSDERM SCH (08:54)
[2021-04-07] MEDS: SERTRALINE 50 MG TAB PO SCH (08:54)
--- NOTE | 2021-04-07 11:14 | P.PN ---
Progress Note - Text Progress Note Date: 04/07/21 Interval History: Patient was seen lying in his bed today and was directable and agreeable to sp eak with gag writer. Patient claims that he is feeling anxious today and depressed still. He reports mild improvement in the symptoms. He claims that he did not sleep at all last night and only slept for 1 hour before gag writer eloped patient today. He states that he is only been mildly interested in groups and has only gone once so far. He was fairly constricted in his affect. He continues to state that he wants to go to rehab however states that he has no social support outside in his family. He claims that he wants to maintain his sobriety from drugs. He states that he is not feeling paranoid today or not hearing any voices. He claims that he feels the trazodone has not been helping him and was agreeable to take Benadryl instead for tonight. He claims that he has a poor appetite. At this time patient denies any suicidal or homical ideations, intent or plan. Patient denies any auditory, visual hallucinations and denies any paranoia or delusions. Patient denies any side effects from the medications and has been compliant with meds. Mental Status Exam: General Appearance: Patient appears to be tall, stated age is alert, directable, and attempts to be cooperative. Improving hygiene and grooming Behavior: Patient is calmly seated without any agitated behavior. Attempts to cooperate Speech: Patient's speech is fluent and nonpressured. Mood/Affect: Mood is depressed and anxious, improving mildly, affect is congruent and constricted. Suicidality/Homicidality: Patient denies having any suicidal or homicidal ideation intent or plan. Perceptions: Patient denies any visual hallucinations and denies any auditory hallucinations Though content/process: More logical today. More future oriented. Goal oriented Memory and concentration: AOX3, grossly intact for the purposes of this session Judgment and insight: Improving mildly Assessment Major depressive disorder without psychotic features Methamphetamine abuse Nicotine dependence Plan: -Patient continues to meet criteria for inpatient psychiatric admission for symptom stabilization and safety. Patient has signed adult voluntary form and medication consent and was placed in patient's chart. -Medications: Increased Zoloft 100 mg daily for mood/anxiety. Discontinue trazodone and switched with Benadryl 50 mg daily at bedtime for insomnia. Continue with Vistaril when necessary for anxiety. -When necessary Ativan and Haldol for agitation/aggression. -NRT - nicotine patch -SW on board for discharge planning. Encouraged the patient to participate in milieu. Patient is currently homeless. Patient does have an intake date for tomorrow morning for inpatient substance rehab.
[2021-04-07] MEDS: hydrOXYzine pamoate 25 MG CAP PO PRN (20:23)
[2021-04-07] MEDS: traZODone HCL 50 MG TAB PO SCH (20:24)
[2021-04-08] MEDS: SERTRALINE 50 MG TAB PO SCH (08:32)
--- NOTE | 2021-04-08 09:04 | P.DS ---
Providers Date of admission: 04/05/21 12:40 Expected date of discharge: 04/08/21 Attending physician: Nick Mendiola MD Consults: 04/05/21 12:45 Consult Physician Routine Consulting Provider: Eran Physician Consult Reason/Comments: medical management Do you want consulting provider notified?: Yes Primary care physician: Stated None - Discharge Diagnosis(es) (1) Major depressive disorder Current Visit: Yes Status: Acute Priority: High (2) Methamphetamine abuse Current Visit: Yes Status: Acute Priority: Medium (3) Nicotine dependence Current Visit: Yes Status: Acute Priority: Low Hospital Course: Admission HPI: Admission note was completed by Dr. dukes "the patient is a 25-year-old male. He says recently he has been living on the streets. He presented to the ED for evaluation. The patient has long-term substance use issues with methamphetamines. In addition he has had depression and suicide thoughts including thoughts of jumping in front of a car. The patient notes that he has had methamphetamine dependence over the last 7 years. He said that as being the main focus pretty much in his entire life. He notes that he had 1 psychiatric admission 1 year ago. At that time his parents brought him to [facility] stating that he was suicidal though their main concern was trying to get him into substance abuse treatment. He was there for 7 days. He said that he did not meet criteria to be admitted to the substance abuse unit. He says that he has been using methamphetamines consistently for 7 years. Starting around 17 or 18. It is noted that he spent one year in custodial between the ages of 18 and 19 when he was involved in a drug house. He has had a few other limited periods of no more than 90 days when he was free of drug use. It is noted that he recently was just in [facility] for 90 days for probation violation relating to failure to drug test and follow through with [facility] program through [facility]. He was released from [facility] March 16. He pretty much immediately got back into using meth. She notes that currently when he uses meth he does not get the same effect that he used to get in the past. He notes that he gets paranoid thinking and has had pervasive thoughts of late that people are following him and plotting against him talking about him behind his back. He said lately he seems to meet criteria for "methamphetamine burnout". He is wanting to get into a treatment program and states that he is motivated to stay completely free of methamphetamine and other abuse of substances. He notes that he started using marijuana at age 16. He said some of that related to a lot of family turmoil that he experienced in his growing up. There was stealing of one family member from another and a lot of difficult interactions with the family. In fact he says that his mother currently is in custodial the best he knows and presumably has been sentenced to 10 years for larceny. The patient notes that other than math he does not use other abuses substances. He says that he no longer feels any high or other benefits from marijuana alcohol or any other drugs. He notes that currently he is on probation until more September 2022. He has been sleeping poorly. His last use of drugs was about 3 days ago. It is noted that he had been prescribed 12 tablets of hydrocodone for foot colitis with the last dose that she took 3 days ago. His last use of methamphetamine was 4 days ago. He has not had any problems with hallucinations. He does say that he gets clear paranoid delusions. He does not identify significant past trauma or posttraumatic issues. He does not clearly identify significant anxiety or panic symptoms. He notes that his biggest issue currently is trying to stay away from other people who do drugs. One of the reasons that he is on the streets is that he is aware he could go to drug houses so that would just put him in more difficulties. It is noted that he has somewhat of a sunburn on his arm because he pretty much has been on the street. He says that his father is supportive, though his father has set limits but the family will no longer support him until he gets fully engage in substance abuse treatment. She did identify a program he couldn't he admitted to as of noon on Tuesday. At this point he has not been able to find transportation. The patient currently is not on any psychotropic medications. He said one medicine he has been prescribed in the past to Zyprexa though he gets significant sedation. He notes that Remeron has been most helpful for him in terms of sleeping as well is seeming to calm some of the feelings related to withdrawal. " Hospital course: Upon admission to the unit patient was initially directable and agreeable to commence treatment and signed adult voluntary form. Patient got along well with other patients on the unit and followed unit protocol. Patient was compliant with the medications and denied any side effects throughout hospital course. Patient was started on Zoloft and titrated the dose of 100 mg daily/anxiety. Patient was also started initially on trazodone however due to ineffectiveness patient was switched on to Benadryl 50 mg daily at bedtime when necessary for sleep. Vistaril when necessary for anxiety. Patient spoke of his stressors and engaged in therapy both group and individual. Patient was also seen by medical team for history and physical exam. Throughout the course of the hospitalization patient gradually improved with regards to mood, anxiety, sleep and became more future oriented with improved insight and judgment. On the day of discharge patient denied any suicidal or homicidal ideations intent or plan d enied any auditory or visual hallucinations. Patient endorsed wanting to live for his sobriety and family. The patient denied any access to guns or weapons. Patient denied any paranoia and did not endorse any delusions. Patient does have a significant history of substance abuse and was counseled on abstaining from all substances including alcohol and marijuana. Patient elected to go to inpatient substance rehab straight from the hospital after discharge today. Patient was also counseled on the medications and need for regular compliance and was encouraged to follow-up with their outpatient appointment for mental health and also for primary care. Mental status exam: General Appearance: Patient appears to be stated age is alert, pleasant, and cooperative. Patient is in no acute distress and has improved hygiene and grooming Behavior: Patient is calmly seated without any agitated behavior. Speech: Patient's speech is fluent and nonpressured. Mood/Affect: Patient reports their mood is "good", affect is congruent and euthymic. Suicidality/Homicidality: Patient denies having any suicidal or homicidal ideation intent or plan. Perceptions: Patient denies any auditory or visual hallucinations. Though content/process: There is no evidence of any delusional thought content and thought process is linear and goal-directed. more future oriented Memory and concentration: AOX3, grossly intact for the purposes of this session. Can spell "WORLD" backwards correctly. Judgment and insight: chronically poor, however has improved with guarded prognosis Impression: Major depressive disorder Methamphetamine abuse Nicotine dependence Plan: -Continue with discharge today as patient has improved and stabilized psychiatrically and is not currently an imminent threat to himself and/or others. Patient will remain at chronically elevated risk for harm to self and/or others due to his substance abuse. -Continue medications: Zoloft 100 mg daily for mood/anxiety, Benadryl 50 mg priyank ly at bedtime for insomnia when necessary, Vistaril when necessary for anxiety. -Patient was counseled on the need for medication compliance and appropriate follow-up at mental health and also primary care for medical issues. Patient verbalized understanding and agreed. -Social work to arrange for and conduct family meeting to ensure safety upon discharge and answer any questions/concerns. Social work also to arrange for patients follow up appointments with [facility] for psychiatric care along with follow up with primary care provider. -Patient counseled on abstaining from recreational drugs and marijuana and alcohol. Was informed/educated on the adverse effects on their physical and mental health. Patient verbally agreed and understood. Patient will be going to substance abuse rehab inpatient to day upon discharge. He will be taken there by bus. -Patient was instructed to return to the hospital or seek immediate medical care if their psychiatric or medical symptoms do worsen or reoccur. Allergies Allergy/AdvReac Type Severity Reaction Status Date / Time latex AdvReac Unknown Verified 04/05/21 10:57 sulfamethoxazole AdvReac Nausea & Verified 04/05/21 10:57 [From Bactrim] Vomiting trimethoprim [From Bactrim] AdvReac Nausea & Verified 04/05/21 10:57 Vomiting Laboratory Results WBC 4.7 k/uL (3.8-10.6) 04/06/21 07:06 RBC 4.76 m/uL (4.30-5.90) 04/06/21 07:06 Hgb 13.5 gm/dL (13.0-17.5) 04/06/21 07:06 Hct 38.7 % (39.0-53.0) L 04/06/21 07:06 MCV 81.3 fL (80.0-100.0) 04/06/21 07:06 MCH 28.4 pg (25.0-35.0) 04/06/21 07:06 MCHC 34.9 g/dL (31.0-37.0) 04/06/21 07:06 RDW 13.5 % (11.5-15.5) 04/06/21 07:06 Plt Count 257 k/uL (150-450) 04/06/21 07:06 MPV 8.0 04/06/21 07:06 Neutrophils % 52 % 04/06/21 07:06 Lymphocytes % 38 % 04/06/21 07:06 Monocytes % 4 % 04/06/21 07:06 Eosinophils % 4 % 04/06/21 07:06 Basophils % 1 % 04/06/21 07:06 Neutrophils # 2.5 k/uL (1.3-7.7) 04/06/21 07:06 Lymphocytes # 1.8 k/uL (1.0-4.8) 04/06/21 07:06 Monocytes # 0.2 k/uL (0-1.0) 04/06/21 07:06 Eosinophils # 0.2 k/uL (0-0.7) 04/06/21 07:06 Basophils # 0.0 k/uL (0-0.2) 04/06/21 07:06 Sodium 140 mmol/L (137-145) 04/06/21 07:06 Potassium 4.7 mmol/L (3.5-5.1) 04/06/21 07:06 Chloride 109 mmol/L (98-107) H 04/06/21 07:06 Carbon Dioxide 26 mmol/L (22-30) 04/06/21 07:06 Anion Gap 5 mmol/L 04/06/21 07:06 BUN 11 mg/dL (9-20) 04/06/21 07:06 Creatinine 0.76 mg/dL (0.66-1.25) 04/06/21 07:06 Est GFR (CKD-EPI)AfAm >90 (>60 ml/min/1.73 sqM) 04/06/21 07:06 Est GFR (CKD-EPI)NonAf >90 (>60 ml/min/1.73 sqM) 04/06/21 07:06 Glucose 92 mg/dL (74-99) 04/06/21 07:[address] Glu mg/dL 88 04/06/21 07:06 Hemoglobin A1c 4.7 % (4.0-6.0) 04/06/21 07:06 Calcium 9.0 mg/dL (8.4-10.2) 04/06/21 07:06 Total Bilirubin 0.1 mg/dL (0.2-1.3) L 04/06/21 07:06 AST 21 U/L (17-59) 04/06/21 07:06 ALT 14 U/L (4-49) 04/06/21 07:06 Alkaline Phosphatase 50 U/L (38-126) 04/06/21 07:06 Total Protein 6.3 g/dL (6.3-8.2) 04/06/21 07:06 Albumin 3.9 g/dL (3.5-5.0) 04/06/21 07:06 Triglycerides 116.0 mg/dL (0.0-149.0) 04/06/21 07:06 Cholesterol 119 mg/dL (0-200) 04/06/21 07:06 LDL Cholesterol, Calc 67.8 mg/dL (0.0-131.0) 04/06/21 07:06 VLDL Cholesterol, Calc 23.20 mg/dL (5.00-40.00) 04/06/21 07:06 HDL Cholesterol 28.0 mg/dL (40.0-60.0) L 04/06/21 07:06 Cholesterol/HDL Ratio 4.25 04/06/21 07:06 TSH 1.390 mIU/L (0.465-4.680) 04/06/21 07:06 Urine Color Yellow 04/05/21 16:47 Urine Appearance Clear (Clear) 04/05/21 16:47 Urine pH 6.5 (5.0-8.0) 04/05/21 16:47 Ur Specific [place] 1.019 (1.001-1.035) 04/05/21 16:47 Urine Protein Negative (Negative) 04/05/21 16:47 Urine Glucose (UA) Negative (Negative) 04/05/21 16:47 Urine Ketones Negative (Negative) 04/05/21 16:47 Urine Blood Negative (Negative) 04/05/21 16:47 Urine Nitrite Negative (Negative) 04/05/21 16:47 Urine Bilirubin Negative (Negative) 04/05/21 16:47 Urine Urobilinogen <2.0 mg/dL (<2.0) 04/05/21 16:47 Ur Leukocyte Esterase Negative (Negative) 04/05/21 16:47 Urine Opiates Screen Not Detected (NotDetected) 04/05/21 09:32 Ur Oxycodone Screen Not Detected (NotDetected) 04/05/21 09:32 Urine Methadone Screen Not Detected (NotDetected) 04/05/21 09:32 Ur Propoxyphene Screen Not Detected (NotDetected) 04/05/21 09:32 Ur Barbiturates Screen Not Detected (NotDetected) 04/05/21 09:32 U Tricyclic Antidepress Not Detected (NotDetected) 04/05/21 09:32 Ur Phencyclidine Scrn Not Detected (NotDetected) 04/05/21 09:32 Ur Amphetamines Screen Not Detected (NotDetected) 04/05/21 09:32 U Methamphetamines Scrn Not Detected (NotDetected) 04/05/21 09:32 U Benzodiazepines Scrn Not Detected (NotDetected) 04/05/21 09:32 Urine Cocaine Screen Not Detected (NotDetected) 04/05/21 09:32 U Marijuana (THC) Screen Not Detected (NotDetected) 04/05/21 09:32 Coronavirus (PCR) Not Detected (Not Detectd) 04/05/21 11:39 Vital Signs Temp 98.4 F 04/06/21 16:31 Pulse 67 04/06/21 06:35 Resp 16 04/06/21 06:35 BP 116/58 04/06/21 06:35 Pulse Ox 97 04/05/21 13:07 Patient Condition at Discharge: Stable Plan - Discharge Summary New Discharge Prescriptions: New diphenhydrAMINE [Benadryl] 50 mg PO HS PRN 30 Days capsule PRN Reason: Insomnia hydrOXYzine pamoate [Vistaril] 25 mg PO BID PRN 30 Days cap PRN Reason: Anxiety Sertraline HCl [Zoloft] 100 mg PO DAILY 30 Days tab Discontinued HYDROcodone/APAP 5-325MG [[place] 5-325] 1 tab PO Q6HR PRN PRN Reason: Pain Cephalexin [Keflex] 500 mg PO TID 5 Days #15 cap Discharge Medication List Sertraline HCl [Zoloft] 100 mg PO DAILY 30 Days tab 04/07/21 [Rx] diphenhydrAMINE [Benadryl] 50 mg PO HS PRN 30 Days capsule 04/07/21 [Rx] hydrOXYzine pamoate [Vistaril] 25 mg PO BID PRN 30 Days cap 04/07/21 [Rx] Follow up Appointment(s)/Referral(s): intake,intake [Other] - 04/08/21 10:00 am [facility] - 1 Week Patient Instructions/Handouts: Hydroxyzine (By mouth), Sertraline (By mouth), Mood Disorders (DC), Depression (DC) Activity/Diet/Wound Care/Special Instructions: Activity and diet as tolerated. Avoid the use of street drugs and alcohol. Take all medications as prescribed. When you are in need of refills on your medications please contact your medical provider and/or outpatient psychiatrist to have this done. Please go to scheduled outpatient appointment for aftercare treatment. If symptoms return or become worse, call the crisis line at and/or go to the nearest emergency room for evaluation. Discharge Disposition: OTHER INSTITUTION NOT DEFINED
== END 2021-04-08 08:37 | disposition home or self-care (01) | DRG 881 ==
LOC: EC 08:01 → 3MHU 12:40
PROVIDERS: ADMIT Psychiatry & Neurology Psychiatry; ATTEND Psychiatry & Neurology Psychiatry
DX: F32.9 Major depressive disorder, single episode, unspecified (principal); F15.23 Other stimulant dependence with withdrawal; R45.851 Suicidal ideations; F17.200 Nicotine dependence, unspecified, uncomplicated; F22 Delusional disorders; F41.9 Anxiety disorder, unspecified; G47.00 Insomnia, unspecified; Z65.3 Problems related to other legal circumstances; Z79.899 Other long term (current) drug therapy; Z20.822 Contact with and (suspected) exposure to COVID-19
CPT/HCPCS: 80053; 80061; 80306; 81003; 82075; 83036; 84443; 85025; 87635; 99285